=== PATIENT | female | born 1950 | race Caucasian/White ===

== ENCOUNTER 2020-05-10 13:35 | Inpatient (IN) ==
[2020-05-10 14:25] LABS: Basophils % 0.3 % (0.0-0.8); Eosinophils # 0.1 10*3/uL (0.0-0.87); Eosinophils % 1.7 % (0.00-10.9); Hematocrit 29.4 VOL% (35.7-47.0); Hemoglobin 9.1 GM/DL (12.0-16.0); Immature Granulocytes % 1.9 %; Immature Granulocytes Absolute 0.11 #; Lymphocytes # 0.6 10*3/uL (1.4-4.0); Lymphocytes % 10.2 % (21.3-54.2); Mean Corpuscular Volume 99.7 FL (87-102); Mean Platelet Volume 9.4 FL (9.6-12.0); Monocytes % 5.1 % (1.7-12.7); Neutrophils % 80.8 % (38.7-73.9); Platelet Count 227 T/CUMM (130-400); Red Blood Count 2.95 MC/CUMM (3.8-5.5); Red Cell Distribution Width 17.2 % (9.3-17.3); White Blood Count 5.9 T/CUMM (4-12)
[2020-05-10 15:03] LABS: Alanine Aminotransferase 14 U/L (13-56); Albumin 3.5 G/DL (3.4-5.0); Alkaline Phosphatase 69 U/L (45-117); Aspartate Amino Transferase 15 U/L (0-37); Blood Urea Nitrogen 29 MG/DL (7-18); Estimated Glom Filtration Rate 23 ML/MIN; Glucose 62 MG/DL (74-106); Osmolality,Calculated 286.1 MOS/KG (273-304); Total Protein 7.2 G/DL (6.4-8.3)
[2020-05-10 15:05] LABS: Calcium < 5.0 MG/DL (8.5-10.1)
[2020-05-10 15:05] LABS: Bacteria,Urine Many /HPF (Few); Bilirubin,Urine Negative (Negative); Blood, Urine Large mg/dL (Negative); Glucose,Urine (UA) Negative (Negative); Ketones,Urine 5 mg/dL (Negative); Nitrite,Urine Negative (Negative); Protein,Urine 100 MG/DL; RBC,Urine 265 /HPF (0-4); Squamous Epithelial Cell,Urine Occasional /HPF (0-10); Urine Appearance CLOUDY (Clear); Urine Color Yellow (Yellow); Urine Specific Gravity 1.014 (1.001-1.035); Urine Urobilinogen < 2.0 EU/DL (0.2-1.0); WBC,Urine 732 /HPF (0-6)
[2020-05-10] MEDS ORDERED: cefTRIAXone 1,000 MG in SODIUM CHLORIDE 0.9% 100 ML IV STA (15:12)
[2020-05-10] MEDS ORDERED: ACETAMINOPHEN 325 MG TABLET PO PRN (17:11)
[2020-05-10] MEDS ORDERED: ONDANSETRON 4 MG/2 ML VIAL IV PRN (17:11)
[2020-05-10] MEDS ORDERED: GLUCAGON 1 MG VIAL IM PRN (17:11)
[2020-05-10] MEDS ORDERED: MAGNESIUM SULF RIDER 2 GM in PREMIX 1 EACH IV ONE (17:18)
[2020-05-10] MEDS ORDERED: ALBUTEROL/IPRATROPIUM 3 ML NEB RESP TX PRN (17:27)
[2020-05-10] MEDS ORDERED: FLUTICASONE 50 MCG NASAL SPRAY 16 GM BOTTLE BOTH NARES PRN (17:27)
[2020-05-10] MEDS ORDERED: HydrOXYzine PAMOATE 25 MG CAPSULE PO PRN (17:27)
[2020-05-10] MEDS ORDERED: SODIUM CHLORIDE 0.9% 1,000 ML IV SCH (17:30)
[2020-05-10] MEDS ORDERED: DEXTROSE 50% 25 GM/50 ML SYRINGE IV ONE (18:09)
[2020-05-10] MEDS: DEXTROSE 50% 25 GM/50 ML VIAL IV PRN ×2 (18:10→23:00)
[2020-05-10] MEDS ORDERED: CALCIUM GLUCONATE 1,000 MG in SODIUM CHLORIDE 0.9% 100 ML IV ONE (20:00)
[2020-05-10] MEDS: LORATADINE 10 MG TABLET PO SCH (20:37)
[2020-05-10] MEDS: MYCOPHENOLATE MOFETIL 250 MG CAPSULE PO SCH (20:38)
[2020-05-10] MEDS: CALCIUM (CARBONATE)/VITAMIN D 500 MG-200 UNIT TABLET PO SCH (20:39)
[2020-05-10] MEDS: MONTELUKAST 10 MG TABLET PO SCH (20:39)
[2020-05-10] MEDS: SERTRALINE 100 MG TABLET PO SCH (20:40)
[2020-05-10] MEDS: LEVOTHYROXINE 50 MCG TABLET PO SCH (20:40)
[2020-05-10] MEDS: ZALEPLON 5 MG CAPSULE PO SCH (20:40)
[2020-05-10] MEDS: FLUTICASONE/SALMETEROL 500-50 DISKUS 14 DOSE INH SCH (20:41)
[2020-05-10] MEDS: TACROLIMUS 0.5 MG CAPSULE PO SCH (20:41)
[2020-05-11] MEDS: DEXTROSE 50% 25 GM/50 ML VIAL IV PRN (02:25)
[2020-05-11] MEDS: DEXTROSE 5% NACL 0.45% 1,000 ML IV SCH ×2 (03:11→14:20)
[2020-05-11 06:51] LABS: Basophils % 0.2 % (0.0-0.8); Eosinophils # 0.1 10*3/uL (0.0-0.87); Eosinophils % 2.1 % (0.00-10.9); Hemoglobin 8.6 GM/DL (12.0-16.0); Immature Granulocytes % 1.1 %; Immature Granulocytes Absolute 0.06 #; Lymphocytes # 0.5 10*3/uL (1.4-4.0); Lymphocytes % 9.8 % (21.3-54.2); Mean Corpuscular HGB Conc 30.7 GM/DL (32-36); Mean Corpuscular Volume 97.2 FL (87-102); Mean Platelet Volume 9.5 FL (9.6-12.0); Monocytes % 5.3 % (1.7-12.7); Neutrophils % 81.5 % (38.7-73.9); Platelet Count 221 T/CUMM (130-400); Red Blood Count 2.88 MC/CUMM (3.8-5.5); White Blood Count 5.3 T/CUMM (4-12)
[2020-05-11 07:16] LABS: Albumin 3.2 G/DL (3.4-5.0); Bilirubin,Total 0.6 MG/DL (0.2-1.0); Osmolality,Calculated 286.1 MOS/KG (273-304)
[2020-05-11 07:18] LABS: Calcium 5.7 MG/DL (8.5-10.1)
[2020-05-11] MEDS ORDERED: IPRATROPIUM 500 MCG/2.5 ML NEB RESP TX ONE (07:19)
[2020-05-11] MEDS: IPRATROPIUM 500 MCG/2.5 ML NEB RESP TX SCH ×4 (07:20→19:20)
[2020-05-11] MEDS ORDERED: CALCIUM GLUCONATE 1,000 MG in SODIUM CHLORIDE 0.9% 100 ML IV ONE ×2 (07:43→09:00)
[2020-05-11] MEDS ORDERED: PANTOPRAZOLE 40 MG TABLET PO SCH (09:00)
[2020-05-11] MEDS: cefTRIAXone 1,000 MG in SYRINGE 1 EACH IV SCH (09:22)
[2020-05-11] MEDS: PANTOPRAZOLE 40 MG TABLET PO SCH (09:22)
[2020-05-11] MEDS: buPROPion XL 150 MG TABLET PO SCH (09:23)
[2020-05-11] MEDS: MYCOPHENOLATE MOFETIL 250 MG CAPSULE PO SCH ×2 (09:23→21:18)
[2020-05-11] MEDS: CALCIUM (CARBONATE)/VITAMIN D 500 MG-200 UNIT TABLET PO SCH ×3 (09:23→21:18)
[2020-05-11] MEDS: FLUTICASONE/SALMETEROL 500-50 DISKUS 14 DOSE INH SCH ×2 (09:24→21:17)
[2020-05-11] MEDS: TACROLIMUS 0.5 MG CAPSULE PO SCH ×2 (09:24→21:18)
[2020-05-11] MEDS: calcitrioL 0.25 MCG CAPSULE PO SCH (09:25)
[2020-05-11] MEDS: MENTHOL/ZINC OXIDE OINT 71 GM JAR TOP SCH (09:25)
[2020-05-11] MEDS: SODIUM BICARB INJ 50 MEQ in DEXTROSE 5% NACL 0.45% 1,000 ML IV SCH (16:14)
[2020-05-11 16:33] LABS: % Iron Saturation 30.1 % (18-50)
[2020-05-11 16:41] LABS: Folate 3.1 NG/ML (5.4-24.0)
[2020-05-11] MEDS: LEVOTHYROXINE 50 MCG TABLET PO SCH (21:18)
[2020-05-11] MEDS: ZALEPLON 5 MG CAPSULE PO SCH (21:18)
[2020-05-11] MEDS: MONTELUKAST 10 MG TABLET PO SCH (21:18)
[2020-05-11] MEDS: LORATADINE 10 MG TABLET PO SCH (21:18)
[2020-05-12] MEDS: SERTRALINE 100 MG TABLET PO SCH ×2 (01:00→20:52)
[2020-05-12] MEDS: SODIUM BICARB INJ 50 MEQ in DEXTROSE 5% NACL 0.45% 1,000 ML IV SCH ×3 (02:17→23:21)
[2020-05-12 04:56] LABS: Allen Test Positive; Pt O2 Delivery Device Room Air
[2020-05-12 04:57] LABS: ABG Base Excess -10.3 MMOL/L (-2.5-2.5); ABG HCO3 13.5 MMOL/L (20-26); ABG Oxygen Saturation 97.2 % (95-100); ABG PCO2 23.1 MM HG (35-48); ABG PH 7.383 (7.35-7.45); ABG PO2 96.1 MM HG (80-95); ABG TCO2 14.2 MMOL/L (23-27)
[2020-05-12 06:25] LABS: Eosinophils # 0.1 10*3/uL (0.0-0.87); Eosinophils % 2.8 % (0.00-10.9); Hemoglobin 8.2 GM/DL (12.0-16.0); Immature Granulocytes % 0.9 %; Immature Granulocytes Absolute 0.04 #; Lymphocytes # 0.5 10*3/uL (1.4-4.0); Lymphocytes % 12.6 % (21.3-54.2); Mean Corpuscular HGB Conc 31.5 GM/DL (32-36); Mean Corpuscular Volume 95.9 FL (87-102); Mean Platelet Volume 9.6 FL (9.6-12.0); Monocytes % 6.5 % (1.7-12.7); Neutrophils % 77.2 % (38.7-73.9); Platelet Count 211 T/CUMM (130-400); Red Blood Count 2.71 MC/CUMM (3.8-5.5); Red Cell Distribution Width 17.1 % (9.3-17.3); White Blood Count 4.3 T/CUMM (4-12)
[2020-05-12 07:05] LABS: Calcium 5.9 MG/DL (8.5-10.1); Osmolality,Calculated 287.8 MOS/KG (273-304)
[2020-05-12] MEDS: IPRATROPIUM 500 MCG/2.5 ML NEB RESP TX SCH ×4 (07:39→19:02)
[2020-05-12] MEDS: TACROLIMUS 0.5 MG CAPSULE PO SCH ×2 (08:25→20:52)
[2020-05-12] MEDS: MENTHOL/ZINC OXIDE OINT 71 GM JAR TOP SCH (08:25)
[2020-05-12] MEDS: FLUTICASONE/SALMETEROL 500-50 DISKUS 14 DOSE INH SCH ×2 (08:25→20:51)
[2020-05-12] MEDS: buPROPion XL 150 MG TABLET PO SCH (08:26)
[2020-05-12] MEDS: calcitrioL 0.25 MCG CAPSULE PO SCH (08:26)
[2020-05-12] MEDS: PANTOPRAZOLE 40 MG TABLET PO SCH (08:26)
[2020-05-12] MEDS: CALCIUM (CARBONATE)/VITAMIN D 500 MG-200 UNIT TABLET PO SCH ×3 (08:26→20:52)
[2020-05-12] MEDS: MYCOPHENOLATE MOFETIL 250 MG CAPSULE PO SCH ×2 (08:26→20:52)
[2020-05-12] MEDS: cefTRIAXone 1,000 MG in SYRINGE 1 EACH IV SCH (09:13)
[2020-05-12] MEDS: LORATADINE 10 MG TABLET PO SCH (20:51)
[2020-05-12] MEDS: ZALEPLON 5 MG CAPSULE PO SCH (20:52)
[2020-05-12] MEDS: MONTELUKAST 10 MG TABLET PO SCH (20:52)
[2020-05-12] MEDS: FOLIC ACID 1 MG TABLET PO SCH (20:52)
[2020-05-12] MEDS: LEVOTHYROXINE 50 MCG TABLET PO SCH (20:53)
[2020-05-13 05:01] LABS: Basophils % 0.3 % (0.0-0.8); Eosinophils # 0.1 10*3/uL (0.0-0.87); Hematocrit 25.8 VOL% (35.7-47.0); Immature Granulocytes % 1.4 %; Immature Granulocytes Absolute 0.05 #; Lymphocytes # 0.5 10*3/uL (1.4-4.0); Lymphocytes % 15.4 % (21.3-54.2); Mean Corpuscular Volume 98.1 FL (87-102); Mean Platelet Volume 10.1 FL (9.6-12.0); Monocytes % 7.1 % (1.7-12.7); Neutrophils % 71.8 % (38.7-73.9); Platelet Count 211 T/CUMM (130-400); Red Blood Count 2.63 MC/CUMM (3.8-5.5); Red Cell Distribution Width 17.1 % (9.3-17.3); White Blood Count 3.5 T/CUMM (4-12)
[2020-05-13 05:24] LABS: Bilirubin,Total 0.4 MG/DL (0.2-1.0); Calcium 5.9 MG/DL (8.5-10.1); Osmolality,Calculated 288.6 MOS/KG (273-304); Total Protein 6.6 G/DL (6.4-8.3)
[2020-05-13 07:33] LABS: Bilirubin,Urine Negative (Negative); Blood, Urine Negative (Negative); Glucose,Urine (UA) Negative (Negative); Ketones,Urine Negative (Negative); Mucus,Urine Occasional /LPF (Occasional); Nitrite,Urine Negative (Negative); Protein,Urine Negative; RBC,Urine 1 /HPF (0-4); Squamous Epithelial Cell,Urine Occasional /HPF (0-10); Urine Appearance CLEAR (Clear); Urine Color Straw (Yellow); Urine Specific Gravity 1.004 (1.001-1.035); Urine Urobilinogen < 2.0 EU/DL (0.2-1.0); WBC,Urine 2 /HPF (0-6)
[2020-05-13] MEDS: IPRATROPIUM 500 MCG/2.5 ML NEB RESP TX SCH ×4 (07:47→18:53)
[2020-05-13] MEDS: LACTATED RINGERS 1,000 ML IV SCH (08:35)
[2020-05-13] MEDS ORDERED: LIDOCAINE 2% 5 ML VIAL ONE (09:00)
[2020-05-13] MEDS ORDERED: propofoL 200 MG/20 ML VIAL IV ONE (09:00)
[2020-05-13] MEDS ORDERED: BISACODYL 5 MG TABLET PO ONE (12:00)
[2020-05-13] MEDS: FLUTICASONE/SALMETEROL 500-50 DISKUS 14 DOSE INH SCH ×2 (12:04→21:15)
[2020-05-13] MEDS: MENTHOL/ZINC OXIDE OINT 71 GM JAR TOP SCH (12:04)
[2020-05-13] MEDS: TACROLIMUS 0.5 MG CAPSULE PO SCH ×2 (12:05→21:11)
[2020-05-13] MEDS: CALCIUM (CARBONATE)/VITAMIN D 500 MG-200 UNIT TABLET PO SCH ×3 (12:06→21:10)
[2020-05-13] MEDS: PANTOPRAZOLE 40 MG TABLET PO SCH (12:06)
[2020-05-13] MEDS: CHOLECALCIFEROL 1,000 UNIT TABLET PO SCH (12:06)
[2020-05-13] MEDS: FOLIC ACID 1 MG TABLET PO SCH ×2 (12:07→21:11)
[2020-05-13] MEDS: MYCOPHENOLATE MOFETIL 250 MG CAPSULE PO SCH ×2 (12:07→21:12)
[2020-05-13] MEDS: cefTRIAXone 1,000 MG in SYRINGE 1 EACH IV SCH (12:07)
[2020-05-13] MEDS: SODIUM BICARB INJ 50 MEQ in DEXTROSE 5% NACL 0.45% 1,000 ML IV SCH ×2 (12:13→23:42)
[2020-05-13] MEDS: buPROPion XL 150 MG TABLET PO SCH (12:13)
[2020-05-13] MEDS ORDERED: POLYETHYLENE GLYCOL POWDER 255 GM BOTTLE PO ONE (15:00)
[2020-05-13] MEDS ORDERED: CALCIUM GLUCONATE 1,000 MG in SODIUM CHLORIDE 0.9% 100 ML IV ONE (15:30)
[2020-05-13] MEDS ORDERED: PROMETHAZINE 25 MG/1 ML VIAL IM PRN (19:25)
[2020-05-13] MEDS ORDERED: MAGNESIUM CITRATE 300 ML BOTTLE PO ONE (21:00)
[2020-05-13] MEDS: LORATADINE 10 MG TABLET PO SCH (21:11)
[2020-05-13] MEDS: MONTELUKAST 10 MG TABLET PO SCH (21:11)
[2020-05-13] MEDS: LEVOTHYROXINE 50 MCG TABLET PO SCH (21:11)
[2020-05-13] MEDS: ZALEPLON 5 MG CAPSULE PO SCH (21:12)
[2020-05-13] MEDS: SERTRALINE 100 MG TABLET PO SCH (21:14)
[2020-05-14 06:15] LABS: Basophils % 0.6 % (0.0-0.8); Eosinophils # 0.1 10*3/uL (0.0-0.87); Eosinophils % 4.4 % (0.00-10.9); Hematocrit 25.2 VOL% (35.7-47.0); Hemoglobin 7.9 GM/DL (12.0-16.0); Immature Granulocytes % 1.9 %; Immature Granulocytes Absolute 0.06 #; Lymphocytes # 0.5 10*3/uL (1.4-4.0); Lymphocytes % 14.8 % (21.3-54.2); Mean Corpuscular HGB Conc 31.3 GM/DL (32-36); Mean Corpuscular Volume 96.6 FL (87-102); Mean Platelet Volume 10.6 FL (9.6-12.0); Monocytes % 8.5 % (1.7-12.7); Neutrophils % 69.8 % (38.7-73.9); Platelet Count 178 T/CUMM (130-400); Red Blood Count 2.61 MC/CUMM (3.8-5.5); Red Cell Distribution Width 16.6 % (9.3-17.3); White Blood Count 3.2 T/CUMM (4-12)
[2020-05-14 06:27] LABS: Calcium 6.7 MG/DL (8.5-10.1); Osmolality,Calculated 285.7 MOS/KG (273-304)
[2020-05-14] MEDS: IPRATROPIUM 500 MCG/2.5 ML NEB RESP TX SCH ×4 (07:47→18:22)
[2020-05-14] MEDS ORDERED: LACTATED RINGERS 1,000 ML IV SCH (08:00)
[2020-05-14] MEDS ORDERED: propofoL 200 MG/20 ML VIAL IV ONE (09:00)
[2020-05-14] MEDS ORDERED: LIDOCAINE 100 MG/5 ML SYRINGE ONE (09:00)
[2020-05-14 10:30] LABS: 25-Hydroxy D Total 7.4 ng/mL; 25-Hydroxy D2 < 4.0 ng/mL; 25-Hydroxy D3 7.4 ng/mL
[2020-05-14] MEDS: POTASSIUM CHLORIDE RIDER 10 MEQ in PREMIX 1 EACH IV SCH ×4 (11:02→13:58)
[2020-05-14] MEDS: TACROLIMUS 0.5 MG CAPSULE PO SCH ×2 (11:07→21:43)
[2020-05-14] MEDS: PANTOPRAZOLE 40 MG TABLET PO SCH (11:08)
[2020-05-14] MEDS: CALCIUM (CARBONATE)/VITAMIN D 500 MG-200 UNIT TABLET PO SCH ×3 (11:08→21:42)
[2020-05-14] MEDS: MYCOPHENOLATE MOFETIL 250 MG CAPSULE PO SCH ×2 (11:08→21:37)
[2020-05-14] MEDS: FOLIC ACID 1 MG TABLET PO SCH ×2 (11:08→21:37)
[2020-05-14] MEDS: CHOLECALCIFEROL 1,000 UNIT TABLET PO SCH (11:08)
[2020-05-14] MEDS: MENTHOL/ZINC OXIDE OINT 71 GM JAR TOP SCH (11:09)
[2020-05-14] MEDS: buPROPion XL 150 MG TABLET PO SCH (11:09)
[2020-05-14] MEDS: FLUTICASONE/SALMETEROL 500-50 DISKUS 14 DOSE INH SCH ×2 (11:09→21:36)
[2020-05-14] MEDS: cefTRIAXone 1,000 MG in SYRINGE 1 EACH IV SCH (11:09)
[2020-05-14] MEDS ORDERED: POTASSIUM CHLORIDE 20 MEQ TABLET PO ONE (14:12)
[2020-05-14] MEDS ORDERED: MAGNESIUM SULF RIDER 2 GM in PREMIX 1 EACH IV ONE (14:12)
[2020-05-14] MEDS ORDERED: CALCIUM GLUCONATE 1,000 MG in SODIUM CHLORIDE 0.9% 100 ML IV ONE (14:30)
[2020-05-14] MEDS: SODIUM BICARB INJ 50 MEQ in DEXTROSE 5% NACL 0.45% 1,000 ML IV SCH (15:25)
[2020-05-14] MEDS: MONTELUKAST 10 MG TABLET PO SCH (21:37)
[2020-05-14] MEDS: LEVOTHYROXINE 50 MCG TABLET PO SCH (21:37)
[2020-05-14] MEDS: LORATADINE 10 MG TABLET PO SCH (21:37)
[2020-05-14] MEDS: ZALEPLON 5 MG CAPSULE PO SCH (21:37)
[2020-05-14] MEDS: SERTRALINE 100 MG TABLET PO SCH (21:37)
[2020-05-15] MEDS: SODIUM BICARB INJ 50 MEQ in DEXTROSE 5% NACL 0.45% 1,000 ML IV SCH (05:14)
[2020-05-15 06:04] LABS: Basophils % 0.3 % (0.0-0.8); Eosinophils # 0.2 10*3/uL (0.0-0.87); Eosinophils % 4.5 % (0.00-10.9); Hematocrit 24.8 VOL% (35.7-47.0); Hemoglobin 7.8 GM/DL (12.0-16.0); Immature Granulocytes % 2.1 %; Immature Granulocytes Absolute 0.07 #; Lymphocytes # 0.5 10*3/uL (1.4-4.0); Mean Corpuscular HGB Conc 31.5 GM/DL (32-36); Mean Corpuscular Volume 96.9 FL (87-102); Mean Platelet Volume 9.2 FL (9.6-12.0); Monocytes % 8.7 % (1.7-12.7); Neutrophils % 68.4 % (38.7-73.9); Platelet Count 171 T/CUMM (130-400); Red Blood Count 2.56 MC/CUMM (3.8-5.5); Red Cell Distribution Width 16.2 % (9.3-17.3); White Blood Count 3.3 T/CUMM (4-12)
[2020-05-15 06:27] LABS: Calcium 6.5 MG/DL (8.5-10.1); Osmolality,Calculated 287.6 MOS/KG (273-304)
[2020-05-15] MEDS: IPRATROPIUM 500 MCG/2.5 ML NEB RESP TX SCH ×2 (07:40→11:20)
[2020-05-15] MEDS: LACTATED RINGERS 1,000 ML IV SCH (08:09)
[2020-05-15] MEDS: CHOLECALCIFEROL 1,000 UNIT TABLET PO SCH (08:41)
[2020-05-15] MEDS: CALCIUM (CARBONATE)/VITAMIN D 500 MG-200 UNIT TABLET PO SCH ×2 (08:41→16:16)
[2020-05-15] MEDS: TACROLIMUS 0.5 MG CAPSULE PO SCH (08:42)
[2020-05-15] MEDS: buPROPion XL 150 MG TABLET PO SCH (08:42)
[2020-05-15] MEDS: FOLIC ACID 1 MG TABLET PO SCH (08:42)
[2020-05-15] MEDS: cefTRIAXone 1,000 MG in SYRINGE 1 EACH IV SCH (08:42)
[2020-05-15] MEDS: PANTOPRAZOLE 40 MG TABLET PO SCH (08:42)
[2020-05-15] MEDS: MYCOPHENOLATE MOFETIL 250 MG CAPSULE PO SCH (08:42)
[2020-05-15] MEDS: MENTHOL/ZINC OXIDE OINT 71 GM JAR TOP SCH (08:44)
[2020-05-15] MEDS: FLUTICASONE/SALMETEROL 500-50 DISKUS 14 DOSE INH SCH (08:44)
[2020-05-15] MEDS ORDERED: SODIUM CHLORIDE 0.9% 1,000 ML IV PRN (12:22)
[2020-05-15] MEDS ORDERED: POTASSIUM CHLORIDE 20 MEQ TABLET PO ONE (12:23)
[2020-05-15 16:20] VITALS: BP 153/56
== END 2020-05-15 17:00 | disposition home or self-care (01) | DRG 389 ==
LOC: N.ED 13:35 → N.EDINP 17:11 → N.5E 17:30
PROVIDERS: ADMIT Internal Medicine; ATTEND Internal Medicine

== ENCOUNTER 2020-06-30 12:04 | Inpatient (IN) ==
[2020-06-30] MEDS ORDERED: ONDANSETRON 4 MG/2 ML VIAL IV STA (12:36)
[2020-06-30] MEDS ORDERED: SODIUM CHLORIDE 0.9% 1,000 ML IV STA ×2 (12:36→14:54)
[2020-06-30 13:22] LABS: Basophils % 0.2 % (0.0-0.8); Eosinophils # 0.1 10*3/uL (0.0-0.87); Eosinophils % 0.4 % (0.00-10.9); Hematocrit 29.2 VOL% (35.7-47.0); Hemoglobin 9.8 GM/DL (12.0-16.0); Immature Granulocytes % 0.6 %; Immature Granulocytes Absolute 0.09 #; Lymphocytes # 0.8 10*3/uL (1.4-4.0); Lymphocytes % 5.1 % (21.3-54.2); Mean Corpuscular HGB Conc 33.6 GM/DL (32-36); Mean Corpuscular Volume 85.6 FL (87-102); Mean Platelet Volume 9.1 FL (9.6-12.0); Monocytes % 4.1 % (1.7-12.7); Neutrophils % 89.6 % (38.7-73.9); Platelet Count 262 T/CUMM (130-400); Red Blood Count 3.41 MC/CUMM (3.8-5.5); Red Cell Distribution Width 14.7 % (9.3-17.3); White Blood Count 15.8 T/CUMM (4-12)
[2020-06-30 13:42] LABS: Alanine Aminotransferase < 9 U/L (13-56); Albumin 3.1 G/DL (3.4-5.0); Alkaline Phosphatase 90 U/L (45-117); Aspartate Amino Transferase 6 U/L (0-37); Blood Urea Nitrogen 77 MG/DL (7-18); Calcium 7.4 MG/DL (8.5-10.1); Estimated Glom Filtration Rate 9 ML/MIN; Glucose 101 MG/DL (74-106); Osmolality,Calculated 295.8 MOS/KG (273-304); Total Protein 6.9 G/DL (6.4-8.3)
[2020-06-30] MEDS ORDERED: cefTRIAXone 1,000 MG VIAL ONE (15:48)
[2020-06-30] MEDS ORDERED: PROMETHAZINE 25 MG/1 ML VIAL ONE (15:48)
[2020-06-30] MEDS ORDERED: SODIUM CHLORIDE 0.9% 100 ML IV ONE (15:49)
[2020-06-30 16:50] LABS: Bacteria,Urine Few /HPF (Few); Bilirubin,Urine Negative (Negative); Blood, Urine Small mg/dL (Negative); Glucose,Urine (UA) Negative (Negative); Ketones,Urine Negative (Negative); Nitrite,Urine Negative (Negative); Protein,Urine Negative; RBC,Urine 1 /HPF (0-4); Squamous Epithelial Cell,Urine Occasional /HPF (0-10); Urine Appearance CLOUDY (Clear); Urine Color Yellow (Yellow); Urine Specific Gravity 1.016 (1.001-1.035); Urine Urobilinogen < 2.0 EU/DL (0.2-1.0); WBC,Urine 7 /HPF (0-6)
[2020-06-30] MEDS ORDERED: PROMETHAZINE 25 MG/1 ML VIAL IM STA (17:13)
[2020-06-30] MEDS ORDERED: cefTRIAXone 1,000 MG in SODIUM CHLORIDE 0.9% 100 ML IV STA (17:14)
[2020-06-30] MEDS ORDERED: DEXTROSE 50% 25 GM/50 ML VIAL IV PRN (18:04)
[2020-06-30] MEDS ORDERED: GLUCAGON 1 MG VIAL IM PRN (18:04)
[2020-06-30] MEDS ORDERED: FLUTICASONE 50 MCG NASAL SPRAY 16 GM BOTTLE BOTH NARES PRN (18:18)
[2020-06-30] MEDS ORDERED: ALBUTEROL/IPRATROPIUM 3 ML NEB RESP TX PRN (18:18)
[2020-06-30] MEDS ORDERED: HydrOXYzine PAMOATE 25 MG CAPSULE PO PRN (18:18)
[2020-06-30] MEDS: LACTATED RINGERS 1,000 ML IV SCH (19:45)
[2020-06-30] MEDS: ONDANSETRON 4 MG/2 ML VIAL IV PRN (20:12)
[2020-06-30] MEDS: CALCIUM (CARBONATE)/VITAMIN D 500 MG-200 UNIT TABLET PO SCH (20:56)
[2020-06-30] MEDS: TACROLIMUS 0.5 MG CAPSULE PO SCH (20:56)
[2020-06-30] MEDS: MYCOPHENOLATE MOFETIL 250 MG CAPSULE PO SCH (20:56)
[2020-06-30] MEDS: PANTOPRAZOLE 40 MG TABLET PO SCH (20:56)
[2020-06-30] MEDS: LORATADINE 10 MG TABLET PO SCH (20:56)
[2020-06-30] MEDS: FOLIC ACID 1 MG TABLET PO SCH (20:56)
[2020-06-30] MEDS: ZALEPLON 5 MG CAPSULE PO SCH (20:56)
[2020-06-30] MEDS: FLUTICASONE/SALMETEROL 500-50 DISKUS 14 DOSE INH SCH (20:56)
[2020-06-30] MEDS: SERTRALINE 100 MG TABLET PO SCH (20:57)
[2020-06-30] MEDS ORDERED: LEVOTHYROXINE 50 MCG TABLET PO SCH (21:00)
[2020-07-01] MEDS: VANCOMYCIN 50 MG/ML 60 ML/BOTTLE PO SCH ×4 (00:30→17:29)
[2020-07-01] MEDS: ACETAMINOPHEN 325 MG TABLET PO PRN ×2 (00:30→10:00)
[2020-07-01] MEDS: ONDANSETRON 4 MG/2 ML VIAL IV PRN (01:07)
[2020-07-01] MEDS: LACTATED RINGERS 1,000 ML IV SCH ×2 (04:48→13:09)
[2020-07-01] MEDS: LEVOTHYROXINE 50 MCG TABLET PO SCH (05:43)
[2020-07-01 06:10] LABS: Calcium 7.7 MG/DL (8.5-10.1); Osmolality,Calculated 297.7 MOS/KG (273-304)
[2020-07-01 06:23] LABS: Basophils % 0.2 % (0.0-0.8); Eosinophils % 0.3 % (0.00-10.9); Hematocrit 29.3 VOL% (35.7-47.0); Hemoglobin 9.9 GM/DL (12.0-16.0); Immature Granulocytes % 0.5 %; Immature Granulocytes Absolute 0.07 #; Lymphocytes # 0.9 10*3/uL (1.4-4.0); Lymphocytes % 6.1 % (21.3-54.2); Mean Corpuscular HGB Conc 33.8 GM/DL (32-36); Mean Corpuscular Volume 85.9 FL (87-102); Monocytes % 3.6 % (1.7-12.7); Neutrophils % 89.3 % (38.7-73.9); Platelet Count 204 T/CUMM (130-400); Red Blood Count 3.41 MC/CUMM (3.8-5.5); Red Cell Distribution Width 14.6 % (9.3-17.3); White Blood Count 14.7 T/CUMM (4-12)
[2020-07-01] MEDS: IPRATROPIUM 500 MCG/2.5 ML NEB RESP TX SCH ×4 (07:31→19:09)
[2020-07-01] MEDS: CHOLECALCIFEROL 1,000 UNIT TABLET PO SCH (09:49)
[2020-07-01] MEDS: TACROLIMUS 0.5 MG CAPSULE PO SCH ×2 (09:49→20:29)
[2020-07-01] MEDS: FOLIC ACID 1 MG TABLET PO SCH ×2 (09:49→20:37)
[2020-07-01] MEDS: PANTOPRAZOLE 40 MG TABLET PO SCH ×2 (09:49→20:37)
[2020-07-01] MEDS: buPROPion XL 150 MG TABLET PO SCH (09:50)
[2020-07-01] MEDS: calcitrioL 0.25 MCG CAPSULE PO SCH (09:50)
[2020-07-01] MEDS: MYCOPHENOLATE MOFETIL 250 MG CAPSULE PO SCH ×2 (09:58→20:37)
[2020-07-01] MEDS: CALCIUM (CARBONATE)/VITAMIN D 500 MG-200 UNIT TABLET PO SCH ×3 (10:51→20:37)
[2020-07-01] MEDS: MENTHOL/ZINC OXIDE OINT 71 GM JAR TOP SCH ×2 (10:51→20:37)
[2020-07-01] MEDS: SODIUM CHLORIDE 0.9% 1,000 ML IV SCH ×2 (16:37→22:41)
[2020-07-01] MEDS: NYSTATIN CREAM 15 GM TUBE TOP SCH ×2 (16:37→20:37)
[2020-07-01] MEDS: FLUTICASONE/SALMETEROL 500-50 DISKUS 14 DOSE INH SCH ×2 (17:36→22:41)
[2020-07-01] MEDS: ZALEPLON 5 MG CAPSULE PO SCH (20:29)
[2020-07-01] MEDS: LORATADINE 10 MG TABLET PO SCH (20:37)
[2020-07-01] MEDS: SERTRALINE 100 MG TABLET PO SCH (20:37)
[2020-07-02] MEDS: VANCOMYCIN 50 MG/ML 60 ML/BOTTLE PO SCH ×5 (00:32→23:25)
[2020-07-02] MEDS: SODIUM CHLORIDE 0.9% 1,000 ML IV SCH (05:39)
[2020-07-02] MEDS: LEVOTHYROXINE 50 MCG TABLET PO SCH (05:40)
[2020-07-02 06:06] LABS: Basophils % 0.2 % (0.0-0.8); Eosinophils # 0.2 10*3/uL (0.0-0.87); Eosinophils % 2.5 % (0.00-10.9); Hematocrit 24.3 VOL% (35.7-47.0); Hemoglobin 8.4 GM/DL (12.0-16.0); Immature Granulocytes % 0.8 %; Immature Granulocytes Absolute 0.05 #; Lymphocytes # 0.7 10*3/uL (1.4-4.0); Lymphocytes % 11.1 % (21.3-54.2); Mean Corpuscular HGB Conc 34.6 GM/DL (32-36); Mean Corpuscular Volume 86.2 FL (87-102); Mean Platelet Volume 10.2 FL (9.6-12.0); Monocytes % 4.3 % (1.7-12.7); Neutrophils % 81.1 % (38.7-73.9); Platelet Count 195 T/CUMM (130-400); Red Blood Count 2.82 MC/CUMM (3.8-5.5); Red Cell Distribution Width 14.8 % (9.3-17.3); White Blood Count 6.5 T/CUMM (4-12)
[2020-07-02 06:37] LABS: Calcium 7.4 MG/DL (8.5-10.1)
[2020-07-02] MEDS: IPRATROPIUM 500 MCG/2.5 ML NEB RESP TX SCH ×4 (07:46→20:40)
[2020-07-02] MEDS: SODIUM BICARB INJ 150 MEQ in STERILE WATER INJ 850 ML IV SCH ×2 (09:27→17:46)
[2020-07-02] MEDS: FLUTICASONE/SALMETEROL 500-50 DISKUS 14 DOSE INH SCH ×2 (09:28→22:07)
[2020-07-02] MEDS: TACROLIMUS 0.5 MG CAPSULE PO SCH ×2 (09:28→22:09)
[2020-07-02] MEDS: FOLIC ACID 1 MG TABLET PO SCH ×2 (09:28→22:09)
[2020-07-02] MEDS: MENTHOL/ZINC OXIDE OINT 71 GM JAR TOP SCH (09:28)
[2020-07-02] MEDS: MYCOPHENOLATE MOFETIL 250 MG CAPSULE PO SCH ×2 (09:28→22:08)
[2020-07-02] MEDS: NYSTATIN CREAM 15 GM TUBE TOP SCH ×2 (09:28→22:08)
[2020-07-02] MEDS: CHOLECALCIFEROL 1,000 UNIT TABLET PO SCH (09:29)
[2020-07-02] MEDS: buPROPion XL 150 MG TABLET PO SCH (09:29)
[2020-07-02] MEDS: PANTOPRAZOLE 40 MG TABLET PO SCH ×2 (09:29→22:09)
[2020-07-02] MEDS: calcitrioL 0.25 MCG CAPSULE PO SCH (09:29)
[2020-07-02] MEDS: CALCIUM (CARBONATE)/VITAMIN D 500 MG-200 UNIT TABLET PO SCH ×3 (09:29→22:09)
[2020-07-02] MEDS ORDERED: VANCOMYCIN INJ 1,000 MG in SODIUM CHLORIDE 0.9% 250 ML IV PRN (10:48)
[2020-07-02] MEDS ORDERED: VANCOMYCIN INJ 1,000 MG in SODIUM CHLORIDE 0.9% 250 ML IV ONE (11:00)
[2020-07-02] MEDS: ZALEPLON 5 MG CAPSULE PO SCH (22:08)
[2020-07-02] MEDS: SERTRALINE 100 MG TABLET PO SCH (22:08)
[2020-07-02] MEDS: LORATADINE 10 MG TABLET PO SCH (22:08)
[2020-07-03] MEDS: SODIUM CHLORIDE 0.9% 1,000 ML IV SCH ×3 (01:21→11:36)
[2020-07-03] MEDS: SODIUM BICARB INJ 150 MEQ in STERILE WATER INJ 850 ML IV SCH ×3 (02:22→22:51)
[2020-07-03] MEDS: VANCOMYCIN 50 MG/ML 60 ML/BOTTLE PO SCH ×3 (05:36→18:29)
[2020-07-03] MEDS: LEVOTHYROXINE 50 MCG TABLET PO SCH (05:36)
[2020-07-03 06:36] LABS: Basophils % 0.2 % (0.0-0.8); Eosinophils # 0.2 10*3/uL (0.0-0.87); Eosinophils % 3.6 % (0.00-10.9); Hematocrit 21.3 VOL% (35.7-47.0); Hemoglobin 7.3 GM/DL (12.0-16.0); Immature Granulocytes % 0.7 %; Immature Granulocytes Absolute 0.03 #; Lymphocytes # 0.7 10*3/uL (1.4-4.0); Lymphocytes % 16.2 % (21.3-54.2); Mean Corpuscular HGB Conc 34.3 GM/DL (32-36); Mean Corpuscular Volume 83.5 FL (87-102); Mean Platelet Volume 10.7 FL (9.6-12.0); Neutrophils % 74.3 % (38.7-73.9); Platelet Count 180 T/CUMM (130-400); Red Blood Count 2.55 MC/CUMM (3.8-5.5); Red Cell Distribution Width 14.6 % (9.3-17.3); White Blood Count 4.4 T/CUMM (4-12)
[2020-07-03 06:55] LABS: Calcium 7.4 MG/DL (8.5-10.1); Osmolality,Calculated 295.8 MOS/KG (273-304)
[2020-07-03] MEDS: IPRATROPIUM 500 MCG/2.5 ML NEB RESP TX SCH ×4 (07:25→19:40)
[2020-07-03] MEDS: MYCOPHENOLATE MOFETIL 250 MG CAPSULE PO SCH ×2 (11:40→20:32)
[2020-07-03] MEDS: PANTOPRAZOLE 40 MG TABLET PO SCH ×2 (11:40→20:32)
[2020-07-03] MEDS: buPROPion XL 150 MG TABLET PO SCH (11:40)
[2020-07-03] MEDS: CHOLECALCIFEROL 1,000 UNIT TABLET PO SCH (11:41)
[2020-07-03] MEDS: TACROLIMUS 0.5 MG CAPSULE PO SCH ×2 (11:42→20:32)
[2020-07-03] MEDS: FOLIC ACID 1 MG TABLET PO SCH ×2 (11:42→20:32)
[2020-07-03] MEDS: calcitrioL 0.25 MCG CAPSULE PO SCH (11:43)
[2020-07-03] MEDS: NYSTATIN CREAM 15 GM TUBE TOP SCH ×2 (11:45→20:33)
[2020-07-03] MEDS: MENTHOL/ZINC OXIDE OINT 71 GM JAR TOP SCH (11:46)
[2020-07-03] MEDS: FLUTICASONE/SALMETEROL 500-50 DISKUS 14 DOSE INH SCH ×2 (11:47→20:33)
[2020-07-03] MEDS: CALCIUM (CARBONATE)/VITAMIN D 500 MG-200 UNIT TABLET PO SCH ×3 (11:48→20:32)
[2020-07-03] MEDS: POTASSIUM CHLORIDE 20 MEQ TABLET PO SCH ×2 (11:49→13:50)
[2020-07-03] MEDS ORDERED: SODIUM CHLORIDE 0.9% 1,000 ML IV PRN (12:34)
[2020-07-03] MEDS ORDERED: VANCOMYCIN INJ 1,000 MG in SODIUM CHLORIDE 0.9% 250 ML IV ONE ×2 (17:00→22:30)
[2020-07-03] MEDS: NYSTATIN 500,000 UNIT/5 ML UDCUP SWISH/SWAL SCH ×2 (17:22→20:31)
[2020-07-03] MEDS: LORATADINE 10 MG TABLET PO SCH (20:31)
[2020-07-03] MEDS: SERTRALINE 100 MG TABLET PO SCH (20:32)
[2020-07-03] MEDS: ZALEPLON 5 MG CAPSULE PO SCH (20:32)
[2020-07-03] MEDS: SODIUM CHLOR 0.9% KCL 40 MEQ 40 MEQ/1,000 ML BAG IV SCH (22:43)
[2020-07-04] MEDS: VANCOMYCIN 50 MG/ML 60 ML/BOTTLE PO SCH ×5 (00:38→23:19)
[2020-07-04] MEDS: LEVOTHYROXINE 50 MCG TABLET PO SCH (05:31)
[2020-07-04 06:12] LABS: Basophils % 0.5 % (0.0-0.8); Eosinophils # 0.2 10*3/uL (0.0-0.87); Hematocrit 27.9 VOL% (35.7-47.0); Immature Granulocytes % 0.8 %; Immature Granulocytes Absolute 0.03 #; Lymphocytes # 0.7 10*3/uL (1.4-4.0); Lymphocytes % 17.5 % (21.3-54.2); Mean Corpuscular HGB Conc 33.7 GM/DL (32-36); Mean Corpuscular Volume 84.5 FL (87-102); Mean Platelet Volume 10.1 FL (9.6-12.0); Monocytes % 8.5 % (1.7-12.7); Neutrophils % 66.7 % (38.7-73.9); Platelet Count 154 T/CUMM (130-400); Red Cell Distribution Width 14.3 % (9.3-17.3)
[2020-07-04 06:19] LABS: Hemoglobin 9.4 GM/DL (12.0-16.0)
[2020-07-04 06:35] LABS: Calcium 7.1 MG/DL (8.5-10.1); Osmolality,Calculated 294.6 MOS/KG (273-304)
[2020-07-04] MEDS: IPRATROPIUM 500 MCG/2.5 ML NEB RESP TX SCH ×4 (07:02→19:31)
[2020-07-04] MEDS: SODIUM CHLOR 0.9% KCL 40 MEQ 40 MEQ/1,000 ML BAG IV SCH ×3 (07:18→15:44)
[2020-07-04] MEDS: SODIUM BICARB INJ 150 MEQ in STERILE WATER INJ 850 ML IV SCH ×2 (07:18→07:19)
[2020-07-04] MEDS: SODIUM CHLORIDE 0.9% 1,000 ML IV SCH ×2 (07:19→07:20)
[2020-07-04] MEDS: POTASSIUM CHLORIDE 20 MEQ TABLET PO SCH (07:20)
[2020-07-04] MEDS ORDERED: POTASSIUM CHLORIDE 20 MEQ TABLET PO ONE (07:28)
[2020-07-04] MEDS: ONDANSETRON 4 MG/2 ML VIAL IV PRN ×3 (08:47→21:06)
[2020-07-04] MEDS: FOLIC ACID 1 MG TABLET PO SCH ×2 (08:48→21:06)
[2020-07-04] MEDS: TACROLIMUS 0.5 MG CAPSULE PO SCH ×2 (08:48→21:07)
[2020-07-04] MEDS: MYCOPHENOLATE MOFETIL 250 MG CAPSULE PO SCH ×2 (08:49→21:07)
[2020-07-04] MEDS: CHOLECALCIFEROL 1,000 UNIT TABLET PO SCH (08:49)
[2020-07-04] MEDS: calcitrioL 0.25 MCG CAPSULE PO SCH (08:49)
[2020-07-04] MEDS: NYSTATIN CREAM 15 GM TUBE TOP SCH ×2 (08:50→21:05)
[2020-07-04] MEDS: buPROPion XL 150 MG TABLET PO SCH (08:50)
[2020-07-04] MEDS: MENTHOL/ZINC OXIDE OINT 71 GM JAR TOP SCH (08:50)
[2020-07-04] MEDS: PANTOPRAZOLE 40 MG TABLET PO SCH ×2 (08:50→21:07)
[2020-07-04] MEDS: FLUTICASONE/SALMETEROL 500-50 DISKUS 14 DOSE INH SCH ×2 (08:50→21:05)
[2020-07-04] MEDS: CALCIUM (CARBONATE)/VITAMIN D 500 MG-200 UNIT TABLET PO SCH ×3 (08:50→21:07)
[2020-07-04] MEDS: NYSTATIN 500,000 UNIT/5 ML UDCUP SWISH/SWAL SCH ×4 (08:50→21:06)
[2020-07-04] MEDS: ZALEPLON 5 MG CAPSULE PO SCH (21:06)
[2020-07-04] MEDS: SERTRALINE 100 MG TABLET PO SCH (21:07)
[2020-07-04] MEDS: LORATADINE 10 MG TABLET PO SCH (21:07)
[2020-07-05] MEDS: VANCOMYCIN 50 MG/ML 60 ML/BOTTLE PO SCH ×4 (05:39→17:14)
[2020-07-05] MEDS: LEVOTHYROXINE 50 MCG TABLET PO SCH (05:39)
[2020-07-05 06:38] LABS: Basophils % 0.3 % (0.0-0.8); Eosinophils # 0.2 10*3/uL (0.0-0.87); Eosinophils % 5.5 % (0.00-10.9); Hematocrit 28.2 VOL% (35.7-47.0); Hemoglobin 9.1 GM/DL (12.0-16.0); Immature Granulocytes % 0.8 %; Immature Granulocytes Absolute 0.03 #; Lymphocytes # 0.6 10*3/uL (1.4-4.0); Lymphocytes % 16.6 % (21.3-54.2); Mean Corpuscular HGB Conc 32.3 GM/DL (32-36); Mean Corpuscular Volume 89.8 FL (87-102); Mean Platelet Volume 10.4 FL (9.6-12.0); Monocytes % 6.6 % (1.7-12.7); Neutrophils % 70.2 % (38.7-73.9); Platelet Count 139 T/CUMM (130-400); Red Blood Count 3.14 MC/CUMM (3.8-5.5); Red Cell Distribution Width 14.6 % (9.3-17.3); White Blood Count 3.6 T/CUMM (4-12)
[2020-07-05 07:00] LABS: Calcium 7.1 MG/DL (8.5-10.1); Osmolality,Calculated 297.1 MOS/KG (273-304)
[2020-07-05] MEDS: IPRATROPIUM 500 MCG/2.5 ML NEB RESP TX SCH ×4 (07:07→19:45)
[2020-07-05] MEDS: SODIUM CHLOR 0.9% KCL 40 MEQ 40 MEQ/1,000 ML BAG IV SCH ×2 (07:11→07:12)
[2020-07-05] MEDS: MYCOPHENOLATE MOFETIL 250 MG CAPSULE PO SCH ×3 (07:44→21:20)
[2020-07-05] MEDS: CHOLECALCIFEROL 1,000 UNIT TABLET PO SCH ×2 (07:44→08:52)
[2020-07-05] MEDS: CALCIUM (CARBONATE)/VITAMIN D 500 MG-200 UNIT TABLET PO SCH ×4 (07:44→21:20)
[2020-07-05] MEDS: TACROLIMUS 0.5 MG CAPSULE PO SCH ×3 (07:44→21:20)
[2020-07-05] MEDS: FOLIC ACID 1 MG TABLET PO SCH ×3 (07:44→21:20)
[2020-07-05] MEDS: NYSTATIN 500,000 UNIT/5 ML UDCUP SWISH/SWAL SCH ×5 (07:44→21:20)
[2020-07-05] MEDS: MENTHOL/ZINC OXIDE OINT 71 GM JAR TOP SCH ×2 (07:45→08:51)
[2020-07-05] MEDS: buPROPion XL 150 MG TABLET PO SCH ×2 (07:45→08:52)
[2020-07-05] MEDS: calcitrioL 0.25 MCG CAPSULE PO SCH ×2 (07:45→08:52)
[2020-07-05] MEDS: FLUTICASONE/SALMETEROL 500-50 DISKUS 14 DOSE INH SCH ×3 (07:45→22:24)
[2020-07-05] MEDS: PANTOPRAZOLE 40 MG TABLET PO SCH ×3 (07:45→21:20)
[2020-07-05] MEDS: NYSTATIN CREAM 15 GM TUBE TOP SCH ×3 (07:45→22:24)
[2020-07-05] MEDS: DEXTROSE 5% NACL 0.45% 1,000 ML IV SCH ×2 (07:46→15:36)
[2020-07-05] MEDS ORDERED: VANCOMYCIN INJ 1,000 MG in SODIUM CHLORIDE 0.9% 250 ML IV SCH (10:00)
[2020-07-05] MEDS ORDERED: LACTATED RINGERS 1,000 ML IV SCH (10:00)
[2020-07-05] MEDS: ONDANSETRON 4 MG/2 ML VIAL IV PRN ×2 (10:45→21:19)
[2020-07-05] MEDS: COLESEVELAM 625 MG TABLET PO SCH (16:51)
[2020-07-05] MEDS: LORATADINE 10 MG TABLET PO SCH (21:19)
[2020-07-05] MEDS: SERTRALINE 100 MG TABLET PO SCH (21:20)
[2020-07-05] MEDS: ZALEPLON 5 MG CAPSULE PO SCH (21:20)
[2020-07-05] MEDS: ACETAMINOPHEN 325 MG TABLET PO PRN (22:24)
[2020-07-06] MEDS: VANCOMYCIN 50 MG/ML 60 ML/BOTTLE PO SCH ×4 (00:20→17:27)
[2020-07-06] MEDS: LEVOTHYROXINE 50 MCG TABLET PO SCH (05:38)
[2020-07-06] MEDS: IPRATROPIUM 500 MCG/2.5 ML NEB RESP TX SCH ×2 (07:00→11:04)
[2020-07-06 09:07] LABS: Calcium 6.7 MG/DL (8.5-10.1); Osmolality,Calculated 287.7 MOS/KG (273-304)
[2020-07-06] MEDS ORDERED: MAGNESIUM SULF RIDER 4 GM in PREMIX 1 EACH IV ONE (10:15)
[2020-07-06] MEDS: FLUTICASONE/SALMETEROL 500-50 DISKUS 14 DOSE INH SCH (10:18)
[2020-07-06] MEDS: DEXTROSE 5% NACL 0.45% 1,000 ML IV SCH ×3 (10:19→16:35)
[2020-07-06] MEDS: COLESEVELAM 625 MG TABLET PO SCH ×2 (10:20→16:35)
[2020-07-06] MEDS: MYCOPHENOLATE MOFETIL 250 MG CAPSULE PO SCH (10:21)
[2020-07-06] MEDS: TACROLIMUS 0.5 MG CAPSULE PO SCH (10:21)
[2020-07-06] MEDS: PANTOPRAZOLE 40 MG TABLET PO SCH (10:22)
[2020-07-06] MEDS: buPROPion XL 150 MG TABLET PO SCH (10:22)
[2020-07-06] MEDS: calcitrioL 0.25 MCG CAPSULE PO SCH (10:22)
[2020-07-06] MEDS: NYSTATIN 500,000 UNIT/5 ML UDCUP SWISH/SWAL SCH ×3 (10:22→16:35)
[2020-07-06] MEDS: FOLIC ACID 1 MG TABLET PO SCH (10:22)
[2020-07-06] MEDS: CALCIUM (CARBONATE)/VITAMIN D 500 MG-200 UNIT TABLET PO SCH ×2 (10:22→16:33)
[2020-07-06] MEDS: MENTHOL/ZINC OXIDE OINT 71 GM JAR TOP SCH (10:23)
[2020-07-06] MEDS: NYSTATIN CREAM 15 GM TUBE TOP SCH (10:25)
[2020-07-06] MEDS: CHOLECALCIFEROL 1,000 UNIT TABLET PO SCH (10:25)
[2020-07-06 11:30] VITALS: BP 152/74
== END 2020-07-06 17:50 | disposition home or self-care (01) | DRG 372 ==
LOC: EDBD → EDUNIT# → N.ED 12:04 → N.EDINP 18:04 → SUATTDRO 18:04 → N.3E 21:45
PROVIDERS: ADMIT Internal Medicine Geriatric Medicine; ATTEND Internal Medicine

== ENCOUNTER 2020-07-15 15:25 | Inpatient (IN) ==
[2020-07-15 16:57] LABS: Eosinophils % 0.7 % (0.00-10.9); Hematocrit 31.7 VOL% (35.7-47.0); Hemoglobin 10.3 GM/DL (12.0-16.0); Immature Granulocytes Absolute 0.12 #; Lymphocytes # 0.5 10*3/uL (1.4-4.0); Lymphocytes % 15.5 % (21.3-54.2); Mean Corpuscular HGB Conc 32.5 GM/DL (32-36); Mean Corpuscular Volume 88.3 FL (87-102); Mean Platelet Volume 11.1 FL (9.6-12.0); Monocytes % 9.8 % (1.7-12.7); Platelet Count 186 T/CUMM (130-400); Red Blood Count 3.59 MC/CUMM (3.8-5.5); Red Cell Distribution Width 15.9 % (9.3-17.3)
[2020-07-15 17:26] LABS: Albumin 2.6 G/DL (3.4-5.0); Bilirubin,Total 0.6 MG/DL (0.2-1.0); Calcium 7.7 MG/DL (8.5-10.1); Osmolality,Calculated 288.7 MOS/KG (273-304); Total Protein 6.3 G/DL (6.4-8.3)
[2020-07-15 17:39] LABS: Ferritin 888.1 ng/ml (8-252)
[2020-07-15] MEDS ORDERED: GLUCAGON 1 MG VIAL IM PRN (18:38)
[2020-07-15] MEDS ORDERED: DEXTROSE 50% 25 GM/50 ML VIAL IV PRN (18:38)
[2020-07-15 18:40] LABS: Lymphocytes 13 % (20-55); Segmented Neutrophils 73 % (50-85); Total Cells Counted 100
[2020-07-15 18:41] LABS: Anisocytosis 1+; Burr Cells Few; Microcytosis 1+; Ovalocytes Few
[2020-07-15 18:42] LABS: Platelet Estimate Adequate; Tear Drop Cells Few
[2020-07-15] MEDS ORDERED: AZITHROMYCIN INJ 250 MG in SODIUM CHLORIDE 0.9% 250 ML IV SCH (19:30)
[2020-07-15] MEDS ORDERED: cefTRIAXone 1,000 MG VIAL ONE (20:36)
[2020-07-15] MEDS ORDERED: SODIUM CHLORIDE 0.9% 100 ML IV ONE (20:36)
[2020-07-15] MEDS ORDERED: SODIUM BICARBONATE 50 MEQ/50 ML VIAL IV ONE ×2 (20:38→23:30)
[2020-07-15] MEDS ORDERED: MAGNESIUM SULF RIDER 2 GM in PREMIX 1 EACH IV ONE (20:38)
[2020-07-15] MEDS ORDERED: FLUTICASONE/SALMETEROL 500-50 DISKUS 14 DOSE INH SCH (21:00)
[2020-07-15] MEDS: FOLIC ACID 1 MG TABLET PO SCH (23:38)
[2020-07-15] MEDS: HEPARIN 5,000 UNIT/1 ML VIAL SUBCUT SCH (23:39)
[2020-07-15] MEDS: MYCOPHENOLATE MOFETIL 250 MG CAPSULE PO SCH (23:39)
[2020-07-15] MEDS: LEVOTHYROXINE 50 MCG TABLET PO SCH (23:39)
[2020-07-15] MEDS: TACROLIMUS 0.5 MG CAPSULE PO SCH (23:39)
[2020-07-15] MEDS: LACTATED RINGERS 1,000 ML IV SCH (23:39)
[2020-07-15] MEDS: VANCOMYCIN 50 MG/ML 60 ML/BOTTLE PO SCH (23:54)
[2020-07-15] MEDS: HydrOXYzine PAMOATE 25 MG CAPSULE PO PRN (23:56)
[2020-07-16 02:41] LABS: Eosinophils % 0.5 % (0.00-10.9); Hematocrit 28.8 VOL% (35.7-47.0); Hemoglobin 9.3 GM/DL (12.0-16.0); Immature Granulocytes % 3.7 %; Immature Granulocytes Absolute 0.08 #; Lymphocytes # 0.2 10*3/uL (1.4-4.0); Lymphocytes % 7.8 % (21.3-54.2); Mean Corpuscular HGB Conc 32.3 GM/DL (32-36); Mean Corpuscular Volume 88.3 FL (87-102); Mean Platelet Volume 10.1 FL (9.6-12.0); Monocytes % 6.9 % (1.7-12.7); Neutrophils % 81.1 % (38.7-73.9); Platelet Count 166 T/CUMM (130-400); Red Blood Count 3.26 MC/CUMM (3.8-5.5); Red Cell Distribution Width 15.7 % (9.3-17.3); White Blood Count 2.2 T/CUMM (4-12)
[2020-07-16 03:05] LABS: Risk Ratio 2.38; VLDL CHOLESTEROL 12.6 MG/DL
[2020-07-16 03:13] LABS: Calcium 7.5 MG/DL (8.5-10.1); Osmolality,Calculated 292.6 MOS/KG (273-304); Thyroid Stimulating Hormone 2.24 uIU/ml (0.358-3.74)
[2020-07-16 04:35] LABS: Band Neutrophils 2 % (0-10); Lymphocytes 6 % (20-55); Microcytosis Slight; Platelet Estimate Normal; Segmented Neutrophils 89 % (50-85); Total Cells Counted 100
[2020-07-16 04:36] LABS: Hypochromasia Slight; Tear Drop Cells Few
[2020-07-16 04:37] LABS: Schistocytes Few
[2020-07-16] MEDS: methylPREDNISolone SOD SUC 40 MG/1 ML VIAL IV SCH ×4 (04:48→21:30)
[2020-07-16] MEDS: cefTRIAXone 1,000 MG in SYRINGE 1 EACH IV SCH ×2 (04:48→21:35)
[2020-07-16] MEDS: HEPARIN 5,000 UNIT/1 ML VIAL SUBCUT SCH ×3 (05:52→22:38)
[2020-07-16] MEDS: VANCOMYCIN 50 MG/ML 60 ML/BOTTLE PO SCH ×3 (05:52→17:01)
[2020-07-16] MEDS: IPRATROPIUM 500 MCG/2.5 ML NEB RESP TX SCH ×2 (06:35→17:25)
[2020-07-16] MEDS ORDERED: FLUTICASONE 50 MCG NASAL SPRAY 16 GM BOTTLE BOTH NARES PRN (07:13)
[2020-07-16] MEDS ORDERED: SODIUM BICARBONATE 50 MEQ/50 ML VIAL IV ONE (07:19)
[2020-07-16] MEDS: DEXTROSE 5% NACL 0.45% 1,000 ML IV SCH ×3 (08:39→17:02)
[2020-07-16] MEDS: TACROLIMUS 0.5 MG CAPSULE PO SCH ×3 (08:41→18:29)
[2020-07-16] MEDS: ASCORBIC ACID 500 MG TABLET PO SCH (08:42)
[2020-07-16] MEDS: ZINC SULFATE 220 MG CAPSULE PO SCH (08:42)
[2020-07-16] MEDS: MYCOPHENOLATE MOFETIL 250 MG CAPSULE PO SCH (08:42)
[2020-07-16] MEDS: calcitrioL 0.25 MCG CAPSULE PO SCH (08:42)
[2020-07-16] MEDS: FOLIC ACID 1 MG TABLET PO SCH ×2 (08:42→21:30)
[2020-07-16] MEDS: AZITHROMYCIN 250 MG TABLET PO SCH (08:42)
[2020-07-16] MEDS: buPROPion XL 150 MG TABLET PO SCH (08:42)
[2020-07-16] MEDS: LACTATED RINGERS 1,000 ML IV SCH (08:47)
[2020-07-16] MEDS ORDERED: DEXAMETHASONE INJ 10 MG in SODIUM CHLORIDE 0.9% 50 ML IV SCH (09:00)
[2020-07-16] MEDS ORDERED: NON-FORMULARY MEDICATION (Omeprazole 40 mg capsule,delayed release(DR/EC)) PO SCH (09:00)
[2020-07-16] MEDS: PANTOPRAZOLE 40 MG TABLET PO SCH ×2 (10:01→21:30)
[2020-07-16] MEDS: ACETAMINOPHEN 325 MG TABLET PO PRN (10:01)
[2020-07-16] MEDS: CALCIUM (CARBONATE)/VITAMIN D 500 MG-200 UNIT TABLET PO SCH ×3 (10:01→21:30)
[2020-07-16] MEDS ORDERED: SODIUM CHLORIDE 0.9% 1,000 ML IV PRN (11:41)
[2020-07-16] MEDS: ALPRAZolam 0.25 MG TABLET PO PRN (14:32)
[2020-07-16] MEDS: ZALEPLON 5 MG CAPSULE PO SCH (21:30)
[2020-07-16] MEDS: LEVOTHYROXINE 50 MCG TABLET PO SCH (21:30)
[2020-07-16] MEDS: LORATADINE 10 MG TABLET PO SCH (21:30)
[2020-07-16] MEDS: MONTELUKAST 10 MG TABLET PO SCH (21:30)
[2020-07-16] MEDS: SERTRALINE 100 MG TABLET PO SCH (21:30)
[2020-07-17] MEDS: VANCOMYCIN 50 MG/ML 60 ML/BOTTLE PO SCH ×5 (00:46→17:39)
[2020-07-17] MEDS: DEXTROSE 5% NACL 0.45% 1,000 ML IV SCH ×2 (00:46→08:29)
[2020-07-17 05:26] LABS: Hemoglobin 8.8 GM/DL (12.0-16.0); Immature Granulocytes % 6.2 %; Immature Granulocytes Absolute 0.08 #; Lymphocytes # 0.2 10*3/uL (1.4-4.0); Lymphocytes % 11.5 % (21.3-54.2); Mean Corpuscular HGB Conc 31.4 GM/DL (32-36); Mean Corpuscular Volume 89.2 FL (87-102); Mean Platelet Volume 9.8 FL (9.6-12.0); Monocytes % 6.9 % (1.7-12.7); Neutrophils % 75.4 % (38.7-73.9); Platelet Count 148 T/CUMM (130-400); Red Blood Count 3.14 MC/CUMM (3.8-5.5); Red Cell Distribution Width 15.8 % (9.3-17.3); White Blood Count 1.3 T/CUMM (4-12)
[2020-07-17] MEDS: ACETAMINOPHEN 325 MG TABLET PO PRN ×2 (05:30→14:29)
[2020-07-17] MEDS: HEPARIN 5,000 UNIT/1 ML VIAL SUBCUT SCH ×3 (05:33→21:00)
[2020-07-17] MEDS: methylPREDNISolone SOD SUC 40 MG/1 ML VIAL IV SCH ×3 (05:33→22:38)
[2020-07-17 05:52] LABS: Ferritin 644.1 ng/ml (8-252)
[2020-07-17 05:58] LABS: Band Neutrophils 3 % (0-10); Lymphocytes 9 % (20-55); Segmented Neutrophils 77 % (50-85); Total Cells Counted 100
[2020-07-17 05:59] LABS: Acanthocytes Few; Hypochromasia 1+; Microcytosis 1+; Tear Drop Cells Slight
[2020-07-17 06:00] LABS: Burr Cells Few; Ovalocytes Slight; Platelet Estimate Adequate; Poikilocytosis 1+
[2020-07-17 06:05] LABS: Albumin 2.3 G/DL (3.4-5.0); Bilirubin,Total 0.6 MG/DL (0.2-1.0); Calcium 7.5 MG/DL (8.5-10.1); Osmolality,Calculated 293.3 MOS/KG (273-304)
[2020-07-17] MEDS: TACROLIMUS 0.5 MG CAPSULE PO SCH ×3 (08:27→18:23)
[2020-07-17] MEDS: buPROPion XL 150 MG TABLET PO SCH (08:28)
[2020-07-17] MEDS: ASCORBIC ACID 500 MG TABLET PO SCH (08:28)
[2020-07-17] MEDS: PANTOPRAZOLE 40 MG TABLET PO SCH ×2 (08:28→21:00)
[2020-07-17] MEDS: calcitrioL 0.25 MCG CAPSULE PO SCH (08:28)
[2020-07-17] MEDS: FOLIC ACID 1 MG TABLET PO SCH ×2 (08:28→21:00)
[2020-07-17] MEDS: CALCIUM (CARBONATE)/VITAMIN D 500 MG-200 UNIT TABLET PO SCH ×3 (08:28→21:00)
[2020-07-17] MEDS: AZITHROMYCIN 250 MG TABLET PO SCH (08:29)
[2020-07-17] MEDS: ALPRAZolam 0.25 MG TABLET PO PRN ×2 (09:36→21:15)
[2020-07-17] MEDS: SODIUM BICARB INJ 150 MEQ in DEXTROSE 5% 850 ML IV SCH (16:32)
[2020-07-17] MEDS: LORATADINE 10 MG TABLET PO SCH (21:00)
[2020-07-17] MEDS: LEVOTHYROXINE 50 MCG TABLET PO SCH (21:00)
[2020-07-17] MEDS: MONTELUKAST 10 MG TABLET PO SCH (21:00)
[2020-07-17] MEDS: SERTRALINE 100 MG TABLET PO SCH (21:00)
[2020-07-17] MEDS: cefTRIAXone 1,000 MG in SYRINGE 1 EACH IV SCH (21:09)
[2020-07-17] MEDS: ZALEPLON 5 MG CAPSULE PO SCH (21:46)
[2020-07-18] MEDS: VANCOMYCIN 50 MG/ML 60 ML/BOTTLE PO SCH ×4 (00:30→17:05)
[2020-07-18] MEDS: SODIUM BICARB INJ 150 MEQ in DEXTROSE 5% 850 ML IV SCH ×3 (02:36→21:51)
[2020-07-18] MEDS: methylPREDNISolone SOD SUC 40 MG/1 ML VIAL IV SCH ×3 (05:30→21:43)
[2020-07-18] MEDS: HEPARIN 5,000 UNIT/1 ML VIAL SUBCUT SCH ×3 (05:36→21:40)
[2020-07-18 06:18] LABS: Hematocrit 25.1 VOL% (35.7-47.0); Hemoglobin 8.1 GM/DL (12.0-16.0); Immature Granulocytes Absolute 0.13 #; Lymphocytes # 0.1 10*3/uL (1.4-4.0); Mean Corpuscular HGB Conc 32.3 GM/DL (32-36); Mean Corpuscular Volume 87.8 FL (87-102); Mean Platelet Volume 11.2 FL (9.6-12.0); Platelet Count 155 T/CUMM (130-400); Red Blood Count 2.86 MC/CUMM (3.8-5.5); Red Cell Distribution Width 15.3 % (9.3-17.3)
[2020-07-18 06:41] LABS: Ferritin 628.8 ng/ml (8-252)
[2020-07-18 06:43] LABS: Albumin 2.2 G/DL (3.4-5.0); Bilirubin,Total 1.3 MG/DL (0.2-1.0); Calcium 7.3 MG/DL (8.5-10.1); Total Protein 5.4 G/DL (6.4-8.3)
[2020-07-18 07:03] LABS: Band Neutrophils 1 % (0-10); Hypochromasia Slight; Lymphocytes 9 % (20-55); Platelet Estimate Normal; Segmented Neutrophils 82 % (50-85); Total Cells Counted 100
[2020-07-18] MEDS: calcitrioL 0.25 MCG CAPSULE PO SCH (08:46)
[2020-07-18] MEDS: TACROLIMUS 0.5 MG CAPSULE PO SCH ×2 (08:46→21:37)
[2020-07-18] MEDS: CALCIUM (CARBONATE)/VITAMIN D 500 MG-200 UNIT TABLET PO SCH ×3 (08:46→21:38)
[2020-07-18] MEDS: FOLIC ACID 1 MG TABLET PO SCH ×2 (08:47→21:38)
[2020-07-18] MEDS: ZINC SULFATE 220 MG CAPSULE PO SCH (08:47)
[2020-07-18] MEDS: buPROPion XL 150 MG TABLET PO SCH (08:47)
[2020-07-18] MEDS: AZITHROMYCIN 250 MG TABLET PO SCH (08:47)
[2020-07-18] MEDS: PANTOPRAZOLE 40 MG TABLET PO SCH ×2 (08:48→21:38)
[2020-07-18] MEDS: ASCORBIC ACID 500 MG TABLET PO SCH (08:48)
[2020-07-18] MEDS: ALPRAZolam 0.25 MG TABLET PO PRN ×2 (10:55→21:38)
[2020-07-18] MEDS: cefTRIAXone 1,000 MG in SYRINGE 1 EACH IV SCH (21:37)
[2020-07-18] MEDS: ZALEPLON 5 MG CAPSULE PO SCH (21:37)
[2020-07-18] MEDS: MONTELUKAST 10 MG TABLET PO SCH (21:38)
[2020-07-18] MEDS: LEVOTHYROXINE 50 MCG TABLET PO SCH (21:38)
[2020-07-18] MEDS: LORATADINE 10 MG TABLET PO SCH (21:38)
[2020-07-18] MEDS: SERTRALINE 100 MG TABLET PO SCH (21:38)
[2020-07-19 06:26] LABS: Calcium 7.1 MG/DL (8.5-10.1); Ferritin 712.5 ng/ml (8-252); Osmolality,Calculated 294.8 MOS/KG (273-304)
[2020-07-19] MEDS: methylPREDNISolone SOD SUC 40 MG/1 ML VIAL IV SCH (06:35)
[2020-07-19] MEDS: HEPARIN 5,000 UNIT/1 ML VIAL SUBCUT SCH ×3 (06:40→22:47)
[2020-07-19] MEDS: VANCOMYCIN 50 MG/ML 60 ML/BOTTLE PO SCH ×5 (06:41→23:20)
[2020-07-19] MEDS: SODIUM BICARB INJ 150 MEQ in DEXTROSE 5% 850 ML IV SCH (07:51)
[2020-07-19] MEDS: AZITHROMYCIN 250 MG TABLET PO SCH (08:56)
[2020-07-19] MEDS: ASCORBIC ACID 500 MG TABLET PO SCH (08:56)
[2020-07-19] MEDS: PANTOPRAZOLE 40 MG TABLET PO SCH ×2 (08:57→20:51)
[2020-07-19] MEDS: calcitrioL 0.25 MCG CAPSULE PO SCH (08:57)
[2020-07-19] MEDS: ALPRAZolam 0.25 MG TABLET PO PRN (08:58)
[2020-07-19] MEDS: buPROPion XL 150 MG TABLET PO SCH (08:58)
[2020-07-19] MEDS: CALCIUM (CARBONATE)/VITAMIN D 500 MG-200 UNIT TABLET PO SCH ×3 (08:58→20:51)
[2020-07-19] MEDS: TACROLIMUS 0.5 MG CAPSULE PO SCH ×2 (08:58→19:23)
[2020-07-19] MEDS: FOLIC ACID 1 MG TABLET PO SCH ×2 (08:58→20:51)
[2020-07-19] MEDS ORDERED: acetaZOLAMIDE 250 MG TABLET PO ONE (10:10)
[2020-07-19] MEDS ORDERED: MAGNESIUM SULF RIDER 2 GM in PREMIX 1 EACH IV ONE (10:13)
[2020-07-19] MEDS ORDERED: POTASSIUM CHLORIDE 20 MEQ TABLET PO ONE (10:13)
[2020-07-19] MEDS: DEXAMETHASONE 4 MG/1 ML VIAL IV SCH (11:24)
[2020-07-19] MEDS: ALBUTEROL INHALER 18 GM INH SCH ×2 (13:17→20:54)
[2020-07-19] MEDS: ALPRAZolam 0.5 MG TABLET PO PRN (19:23)
[2020-07-19] MEDS: ZALEPLON 5 MG CAPSULE PO SCH (20:50)
[2020-07-19] MEDS: MONTELUKAST 10 MG TABLET PO SCH (20:51)
[2020-07-19] MEDS: LORATADINE 10 MG TABLET PO SCH (20:51)
[2020-07-19] MEDS: SERTRALINE 100 MG TABLET PO SCH (20:51)
[2020-07-19] MEDS: LEVOTHYROXINE 50 MCG TABLET PO SCH (20:51)
[2020-07-19] MEDS: cefTRIAXone 1,000 MG in SYRINGE 1 EACH IV SCH (20:53)
[2020-07-20] MEDS: ALBUTEROL INHALER 18 GM INH SCH ×4 (01:55→18:16)
[2020-07-20] MEDS: ALPRAZolam 0.5 MG TABLET PO PRN ×2 (04:07→10:19)
[2020-07-20] MEDS: HEPARIN 5,000 UNIT/1 ML VIAL SUBCUT SCH ×3 (05:54→22:31)
[2020-07-20] MEDS: VANCOMYCIN 50 MG/ML 60 ML/BOTTLE PO SCH ×3 (05:54→18:36)
[2020-07-20 06:34] LABS: Albumin 2.2 G/DL (3.4-5.0); Bilirubin,Total 0.5 MG/DL (0.2-1.0); Calcium 7.2 MG/DL (8.5-10.1); Total Protein 5.9 G/DL (6.4-8.3)
[2020-07-20] MEDS: DEXAMETHASONE 4 MG/1 ML VIAL IV SCH (09:51)
[2020-07-20] MEDS: PANTOPRAZOLE 40 MG TABLET PO SCH ×2 (09:51→20:54)
[2020-07-20] MEDS: ASCORBIC ACID 500 MG TABLET PO SCH (09:51)
[2020-07-20] MEDS: CALCIUM (CARBONATE)/VITAMIN D 500 MG-200 UNIT TABLET PO SCH ×3 (09:51→20:54)
[2020-07-20] MEDS: FOLIC ACID 1 MG TABLET PO SCH ×2 (09:51→20:54)
[2020-07-20] MEDS: TACROLIMUS 0.5 MG CAPSULE PO SCH (09:51)
[2020-07-20] MEDS: calcitrioL 0.25 MCG CAPSULE PO SCH (09:51)
[2020-07-20] MEDS: buPROPion XL 150 MG TABLET PO SCH (09:51)
[2020-07-20] MEDS: AZITHROMYCIN 250 MG TABLET PO SCH (09:52)
[2020-07-20] MEDS: ZINC SULFATE 220 MG CAPSULE PO SCH (09:52)
[2020-07-20] MEDS ORDERED: guaiFENesin 200 MG/10 ML UDCUP PO PRN (10:32)
[2020-07-20] MEDS ORDERED: METHOCARBAMOL 500 MG TABLET PO PRN (10:33)
[2020-07-20] MEDS ORDERED: MEROPENEM 500 MG in SODIUM CHLORIDE 0.9% 100 ML IV SCH (17:00)
[2020-07-20 17:51] LABS: Basophils % 0.2 % (0.0-0.8); Eosinophils % 0.3 % (0.00-10.9); Hematocrit 27.9 VOL% (35.7-47.0); Hemoglobin 8.7 GM/DL (12.0-16.0); Immature Granulocytes % 9.3 %; Immature Granulocytes Absolute 0.61 #; Lymphocytes # 0.3 10*3/uL (1.4-4.0); Lymphocytes % 4.1 % (21.3-54.2); Mean Corpuscular HGB Conc 31.2 GM/DL (32-36); Mean Corpuscular Volume 89.7 FL (87-102); Mean Platelet Volume 10.9 FL (9.6-12.0); Monocytes % 4.1 % (1.7-12.7); Platelet Count 180 T/CUMM (130-400); Red Blood Count 3.11 MC/CUMM (3.8-5.5); Red Cell Distribution Width 14.8 % (9.3-17.3); White Blood Count 6.6 T/CUMM (4-12)
[2020-07-20 18:13] LABS: Band Neutrophils 7 % (0-10); Lymphocytes 3 % (20-55); Metamyelocytes 2 %; Segmented Neutrophils 86 % (50-85); Total Cells Counted 100
[2020-07-20 18:14] LABS: Anisocytosis Slight; Elliptocytes Few; Microcytosis Slight; Platelet Estimate Normal; Schistocytes Slight
[2020-07-20] MEDS: MEROPENEM 500 MG in SODIUM CHLORIDE 0.9% 100 ML IV SCH (18:15)
[2020-07-20] MEDS: LORATADINE 10 MG TABLET PO SCH (20:54)
[2020-07-20] MEDS: MONTELUKAST 10 MG TABLET PO SCH (20:54)
[2020-07-20] MEDS: ZALEPLON 5 MG CAPSULE PO SCH (20:54)
[2020-07-20] MEDS: SERTRALINE 100 MG TABLET PO SCH (20:55)
[2020-07-20] MEDS: LEVOTHYROXINE 50 MCG TABLET PO SCH (20:55)
[2020-07-21] MEDS: ALPRAZolam 0.5 MG TABLET PO PRN ×2 (00:30→23:04)
[2020-07-21] MEDS: MEROPENEM 500 MG in SODIUM CHLORIDE 0.9% 100 ML IV SCH ×3 (00:46→16:32)
[2020-07-21] MEDS: VANCOMYCIN 50 MG/ML 60 ML/BOTTLE PO SCH ×2 (00:46→05:24)
[2020-07-21] MEDS: ALBUTEROL INHALER 18 GM INH SCH ×4 (00:49→23:18)
[2020-07-21] MEDS: HEPARIN 5,000 UNIT/1 ML VIAL SUBCUT SCH ×3 (05:24→23:04)
[2020-07-21 07:00] LABS: Calcium 7.5 MG/DL (8.5-10.1)
[2020-07-21 07:03] LABS: Calcium 7.6 MG/DL (8.5-10.1); Ferritin 1158.5 ng/ml (8-252); Osmolality,Calculated 284.1 MOS/KG (273-304)
[2020-07-21 07:07] LABS: Basophils % 0.4 % (0.0-0.8); Eosinophils # 0.1 10*3/uL (0.0-0.87); Eosinophils % 1.5 % (0.00-10.9); Hemoglobin 9.1 GM/DL (12.0-16.0); Immature Granulocytes % 13.1 %; Immature Granulocytes Absolute 1.07 #; Lymphocytes # 0.4 10*3/uL (1.4-4.0); Lymphocytes % 5.3 % (21.3-54.2); Mean Corpuscular HGB Conc 31.4 GM/DL (32-36); Mean Corpuscular Volume 90.6 FL (87-102); Monocytes % 3.9 % (1.7-12.7); Neutrophils % 75.8 % (38.7-73.9); Platelet Count 189 T/CUMM (130-400); Red Cell Distribution Width 14.8 % (9.3-17.3); White Blood Count 8.2 T/CUMM (4-12)
[2020-07-21 07:38] LABS: Band Neutrophils 1 % (0-10); Hypochromasia 1+; Lymphocytes 6 % (20-55); Microcytosis 1+; Ovalocytes Slight; Platelet Estimate Adequate; Segmented Neutrophils 88 % (50-85); Total Cells Counted 100
[2020-07-21] MEDS: FOLIC ACID 1 MG TABLET PO SCH ×2 (08:16→23:04)
[2020-07-21] MEDS: DEXAMETHASONE 4 MG/1 ML VIAL IV SCH (08:16)
[2020-07-21] MEDS: TACROLIMUS 0.5 MG CAPSULE PO SCH ×2 (08:17→18:00)
[2020-07-21] MEDS: CALCIUM (CARBONATE)/VITAMIN D 500 MG-200 UNIT TABLET PO SCH ×3 (08:17→23:04)
[2020-07-21] MEDS: PANTOPRAZOLE 40 MG TABLET PO SCH ×2 (08:17→23:03)
[2020-07-21] MEDS: calcitrioL 0.25 MCG CAPSULE PO SCH (08:17)
[2020-07-21] MEDS: buPROPion XL 150 MG TABLET PO SCH (08:18)
[2020-07-21] MEDS: ASCORBIC ACID 500 MG TABLET PO SCH (08:18)
[2020-07-21 09:07] VITALS: BP 148/83
[2020-07-21] MEDS: LACTOBACILLUS RHAMNOSUS GG CAPSULE PO SCH (10:32)
[2020-07-21] MEDS ORDERED: LORazepam 2 MG/1 ML VIAL IV ONE (12:00)
[2020-07-21 14:08] LABS: Bacteria,Urine Occasional /HPF (Few); Bilirubin,Urine Negative (Negative); Blood, Urine Negative (Negative); Glucose,Urine (UA) Negative (Negative); Ketones,Urine 20 mg/dL (Negative); Mucus,Urine Occasional /LPF (Occasional); Nitrite,Urine Negative (Negative); Protein,Urine 100 MG/DL; RBC,Urine 4 /HPF (0-4); Squamous Epithelial Cell,Urine Occasional /HPF (0-10); Urine Appearance CLEAR (Clear); Urine Color Yellow (Yellow); Urine Specific Gravity 1.017 (1.001-1.035); Urine Urobilinogen < 2.0 EU/DL (0.2-1.0); WBC,Urine 2 /HPF (0-6)
[2020-07-21] MEDS: SODIUM CHLORIDE 0.9% 1,000 ML IV SCH (16:31)
[2020-07-21 21:09] LABS: ABG Base Excess -3.3 MMOL/L (-2.5-2.5); ABG HCO3 21.6 MMOL/L (20-26); ABG Oxygen Saturation 93.9 % (95-100); ABG PCO2 38.1 MM HG (35-48); ABG PH 7.364 (7.35-7.45); ABG PO2 78.9 MM HG (80-95); ABG TCO2 19.3 MMOL/L (23-27); Allen Test Positive; Pt O2 Delivery Device Other
[2020-07-21] MEDS: LEVOTHYROXINE 50 MCG TABLET PO SCH (23:03)
[2020-07-21] MEDS: SERTRALINE 100 MG TABLET PO SCH (23:04)
[2020-07-21] MEDS: MONTELUKAST 10 MG TABLET PO SCH (23:04)
[2020-07-21] MEDS: HydrOXYzine PAMOATE 25 MG CAPSULE PO PRN (23:04)
[2020-07-21] MEDS: ZALEPLON 5 MG CAPSULE PO SCH (23:05)
[2020-07-21] MEDS: LORATADINE 10 MG TABLET PO SCH (23:13)
[2020-07-22] MEDS: MEROPENEM 500 MG in SODIUM CHLORIDE 0.9% 100 ML IV SCH ×3 (01:15→16:15)
[2020-07-22] MEDS: SODIUM CHLORIDE 0.9% 1,000 ML IV SCH (02:54)
[2020-07-22 04:53] LABS: Allen Test Positive; Pt O2 Delivery Device BIPAP
[2020-07-22 04:54] LABS: ABG Base Excess -4.5 MMOL/L (-2.5-2.5); ABG HCO3 20.7 MMOL/L (20-26); ABG Oxygen Saturation 96.6 % (95-100); ABG PCO2 36.8 MM HG (35-48); ABG PH 7.354 (7.35-7.45); ABG PO2 94.8 MM HG (80-95)
[2020-07-22 05:10] LABS: Basophils % 0.4 % (0.0-0.8); Eosinophils # 0.1 10*3/uL (0.0-0.87); Eosinophils % 1.2 % (0.00-10.9); Hematocrit 27.6 VOL% (35.7-47.0); Hemoglobin 8.4 GM/DL (12.0-16.0); Immature Granulocytes % 16.7 %; Immature Granulocytes Absolute 1.23 #; Lymphocytes # 0.4 10*3/uL (1.4-4.0); Mean Corpuscular HGB Conc 30.4 GM/DL (32-36); Mean Corpuscular Volume 92.3 FL (87-102); Mean Platelet Volume 10.6 FL (9.6-12.0); Monocytes % 4.7 % (1.7-12.7); Platelet Count 191 T/CUMM (130-400); Red Blood Count 2.99 MC/CUMM (3.8-5.5); Red Cell Distribution Width 15.1 % (9.3-17.3); White Blood Count 7.4 T/CUMM (4-12)
[2020-07-22 05:31] LABS: Band Neutrophils 7 % (0-10); Eosinophils 1 % (0-10); Lymphocytes 7 % (20-55); Platelet Estimate Adequate; Segmented Neutrophils 80 % (50-85); Total Cells Counted 100
[2020-07-22 05:32] LABS: Hypochromasia 2+; Microcytosis 1+; Ovalocytes Slight
[2020-07-22] MEDS: ALBUTEROL INHALER 18 GM INH SCH ×4 (05:45→20:03)
[2020-07-22] MEDS: HEPARIN 5,000 UNIT/1 ML VIAL SUBCUT SCH ×2 (07:18→13:16)
[2020-07-22 07:55] LABS: Calcium 7.5 MG/DL (8.5-10.1); Ferritin 1203.8 ng/ml (8-252); Osmolality,Calculated 293.6 MOS/KG (273-304)
[2020-07-22] MEDS: buPROPion XL 150 MG TABLET PO SCH (08:06)
[2020-07-22] MEDS: ASCORBIC ACID 500 MG TABLET PO SCH (08:06)
[2020-07-22] MEDS: LACTOBACILLUS RHAMNOSUS GG CAPSULE PO SCH (08:07)
[2020-07-22] MEDS: DEXAMETHASONE 4 MG/1 ML VIAL IV SCH (08:07)
[2020-07-22] MEDS: ZINC GLUCONATE 50 MG TABLET PO SCH (08:07)
[2020-07-22] MEDS: calcitrioL 0.25 MCG CAPSULE PO SCH (08:07)
[2020-07-22] MEDS: FOLIC ACID 1 MG TABLET PO SCH ×2 (08:07→20:27)
[2020-07-22] MEDS: PANTOPRAZOLE 40 MG TABLET PO SCH ×2 (08:07→20:27)
[2020-07-22] MEDS ORDERED: HEPARIN 10,000 UNIT/10 ML VIAL IV PRN ×2 (09:14→09:15)
[2020-07-22] MEDS: CALCIUM (CARBONATE)/VITAMIN D 500 MG-200 UNIT TABLET PO SCH (10:31)
[2020-07-22] MEDS: ALPRAZolam 0.5 MG TABLET PO PRN (11:00)
[2020-07-22] MEDS ORDERED: FAMOTIDINE 20 MG/2 ML VIAL IV SCH (11:00)
[2020-07-22] MEDS ORDERED: DEXTROSE 5% 1,000 ML IV SCH (11:00)
[2020-07-22] MEDS: FAMOTIDINE 20 MG/2 ML VIAL IV SCH (12:07)
[2020-07-22] MEDS ORDERED: ENOXAPARIN 30 MG/0.3 ML SYRINGE SUBCUT SCH (13:30)
[2020-07-22] MEDS ORDERED: ALPRAZolam 0.5 MG TABLET PO PRN (13:32)
[2020-07-22] MEDS: methylPREDNISolone SOD SUC 40 MG/1 ML VIAL IV SCH ×2 (13:35→20:25)
[2020-07-22 15:16] LABS: Hepatitis B Surface Ag Result Negative (Negative); Hepatitis C Virus Ab Quant 3.09 Index
[2020-07-22 15:18] LABS: Hepatitis B Surface Ag Quant < 0.10 Index
[2020-07-22] MEDS: TACROLIMUS 0.5 MG CAPSULE PO SCH (18:00)
[2020-07-22] MEDS: LORATADINE 10 MG TABLET PO SCH (20:26)
[2020-07-22] MEDS: MONTELUKAST 10 MG TABLET PO SCH (20:26)
[2020-07-22] MEDS: ENOXAPARIN 30 MG/0.3 ML SYRINGE SUBCUT SCH (20:26)
[2020-07-22] MEDS: LEVOTHYROXINE 50 MCG TABLET PO SCH (20:27)
[2020-07-22] MEDS: SERTRALINE 100 MG TABLET PO SCH (20:31)
[2020-07-22] MEDS: ZALEPLON 5 MG CAPSULE PO SCH (21:17)
[2020-07-23] MEDS: ACETAMINOPHEN 325 MG TABLET PO PRN
[2020-07-23] MEDS: methylPREDNISolone SOD SUC 40 MG/1 ML VIAL IV SCH ×4 (01:00→19:56)
[2020-07-23] MEDS: MEROPENEM 500 MG in SODIUM CHLORIDE 0.9% 100 ML IV SCH ×3 (01:01→16:54)
[2020-07-23] MEDS: MORPHINE 4 MG/1 ML VIAL IV PRN ×2 (01:24→21:09)
[2020-07-23 03:47] LABS: ABG Base Excess -8.5 MMOL/L (-2.5-2.5); ABG HCO3 17.4 MMOL/L (20-26); ABG PCO2 38.8 MM HG (35-48); ABG PH 7.271 (7.35-7.45); ABG TCO2 16.5 MMOL/L (23-27); Allen Test Positive; Pt O2 Delivery Device BIPAP
[2020-07-23] MEDS ORDERED: SODIUM BICARBONATE 50 MEQ/50 ML VIAL IV ONE (04:03)
[2020-07-23] MEDS ORDERED: SODIUM BICARB INJ 50 MEQ in DEXTROSE 5% 1,000 ML IV SCH (04:30)
[2020-07-23 04:38] LABS: Basophils % 0.1 % (0.0-0.8); Hematocrit 29.7 VOL% (35.7-47.0); Immature Granulocytes % 18.8 %; Immature Granulocytes Absolute 2.14 #; Lymphocytes # 0.5 10*3/uL (1.4-4.0); Lymphocytes % 4.3 % (21.3-54.2); Mean Corpuscular HGB Conc 30.3 GM/DL (32-36); Mean Corpuscular Volume 92.5 FL (87-102); Mean Platelet Volume 10.7 FL (9.6-12.0); Monocytes % 2.7 % (1.7-12.7); Neutrophils % 74.1 % (38.7-73.9); Platelet Count 249 T/CUMM (130-400); Red Blood Count 3.21 MC/CUMM (3.8-5.5); Red Cell Distribution Width 15.3 % (9.3-17.3); White Blood Count 11.4 T/CUMM (4-12)
[2020-07-23 04:58] LABS: Albumin 2.4 G/DL (3.4-5.0); Bilirubin,Total 1.2 MG/DL (0.2-1.0); Calcium 8.1 MG/DL (8.5-10.1); Osmolality,Calculated 277.7 MOS/KG (273-304); Total Protein 6.9 G/DL (6.4-8.3)
[2020-07-23 05:02] LABS: Ferritin 1982.9 ng/ml (8-252); Lymphocytes 4 % (20-55); Platelet Estimate Adequate; Segmented Neutrophils 93 % (50-85); Total Cells Counted 100
[2020-07-23 05:03] LABS: Burr Cells Slight; Hypochromasia 1+; Microcytosis 1+; Ovalocytes Slight
[2020-07-23] MEDS: ALBUTEROL INHALER 18 GM INH SCH ×4 (06:19→19:55)
[2020-07-23] MEDS ORDERED: ETOMIDATE 20 MG/10 ML VIAL IV ONE ×2 (07:22→07:48)
[2020-07-23] MEDS ORDERED: SUCCINYLCHOLINE 200 MG/10 ML VIAL ONE (07:23)
[2020-07-23] MEDS ORDERED: SUCCINYLCHOLINE 200 MG/10 ML VIAL IV ONE (07:50)
[2020-07-23] MEDS: PANTOPRAZOLE 40 MG TABLET PO SCH (08:33)
[2020-07-23 08:34] LABS: ABG Base Excess -6.8 MMOL/L (-2.5-2.5); ABG HCO3 20.6 MMOL/L (20-26); ABG Oxygen Saturation 82.3 % (95-100); ABG PCO2 50.7 MM HG (35-48); ABG PH 7.227 (7.35-7.45); ABG PO2 57.1 MM HG (80-95); ABG TCO2 22.2 MMOL/L (23-27); Pt O2 Delivery Device Ventilator
[2020-07-23] MEDS: ASCORBIC ACID 500 MG TABLET PO SCH (08:42)
[2020-07-23] MEDS: LACTOBACILLUS RHAMNOSUS GG CAPSULE PO SCH (08:42)
[2020-07-23] MEDS: calcitrioL 0.25 MCG CAPSULE PO SCH (08:42)
[2020-07-23] MEDS: FOLIC ACID 1 MG TABLET PO SCH ×2 (08:43→20:21)
[2020-07-23] MEDS: ENOXAPARIN 30 MG/0.3 ML SYRINGE SUBCUT SCH ×2 (08:43→20:22)
[2020-07-23] MEDS: ZINC GLUCONATE 50 MG TABLET PO SCH (08:43)
[2020-07-23] MEDS ORDERED: SODIUM CHLORIDE 0.9% 1,000 ML IV ONE (09:17)
[2020-07-23] MEDS ORDERED: ROCURONIUM 500 MG in SODIUM CHLORIDE 0.9% 500 ML IV PRN (09:29)
[2020-07-23] MEDS ORDERED: FUROSEMIDE 20 MG/2 ML VIAL IV ONE (09:33)
[2020-07-23] MEDS ORDERED: VANCOMYCIN INJ 1,250 MG in SODIUM CHLORIDE 0.9% 250 ML IV SCH (10:30)
[2020-07-23] MEDS: FAMOTIDINE 20 MG/2 ML VIAL IV SCH (12:10)
[2020-07-23 14:20] LABS: ABG Base Excess -8.3 MMOL/L (-2.5-2.5); ABG HCO3 17.6 MMOL/L (20-26); ABG Oxygen Saturation 90.9 % (95-100); ABG PCO2 65.8 MM HG (35-48); ABG PO2 78.8 MM HG (80-95); ABG TCO2 20.8 MMOL/L (23-27)
[2020-07-23 14:22] LABS: ABG PH 7.124 (7.35-7.45)
[2020-07-23 15:52] LABS: Pt O2 Delivery Device Ventilator
[2020-07-23 15:53] LABS: ABG Base Excess -7.7 MMOL/L (-2.5-2.5); ABG HCO3 18.1 MMOL/L (20-26); ABG Oxygen Saturation 92.8 % (95-100); ABG PCO2 51.5 MM HG (35-48); ABG PO2 78.1 MM HG (80-95); ABG TCO2 19.4 MMOL/L (23-27)
[2020-07-23 15:54] LABS: ABG PH 7.203 (7.35-7.45)
[2020-07-23] MEDS: NOREPINEPHRINE 8 MG in SODIUM CHLORIDE 0.9% 242 ML IV PRN (17:01)
[2020-07-23] MEDS: TACROLIMUS 0.5 MG CAPSULE PO SCH (18:07)
[2020-07-23] MEDS: SERTRALINE 100 MG TABLET PO SCH (20:21)
[2020-07-23] MEDS: LEVOTHYROXINE 50 MCG TABLET PO SCH (20:21)
[2020-07-23] MEDS: MONTELUKAST 10 MG TABLET PO SCH (20:21)
[2020-07-24] MEDS: fentaNYL INJ 1,250 MCG in SODIUM CHLORIDE 0.9% 225 ML IV PRN ×2 (00:35→13:12)
[2020-07-24] MEDS: methylPREDNISolone SOD SUC 40 MG/1 ML VIAL IV SCH ×4 (00:35→20:22)
[2020-07-24] MEDS: MEROPENEM 500 MG in SODIUM CHLORIDE 0.9% 100 ML IV SCH ×3 (00:35→17:33)
[2020-07-24] MEDS: ALBUTEROL INHALER 18 GM INH SCH ×4 (00:36→18:02)
[2020-07-24 04:24] LABS: ABG Base Excess -8.7 MMOL/L (-2.5-2.5); ABG HCO3 20.2 MMOL/L (20-26); ABG Oxygen Saturation 95.1 % (95-100); ABG PCO2 61.3 MM HG (35-48); ABG PO2 88.6 MM HG (80-95); ABG TCO2 22.1 MMOL/L (23-27); Allen Test Positive; Pt O2 Delivery Device Ventilator
[2020-07-24 04:40] LABS: Basophils # 0.1 10*3/uL (0.0-0.2); Basophils % 0.5 % (0.0-0.8); Hemoglobin 8.5 GM/DL (12.0-16.0); Immature Granulocytes % 17.9 %; Immature Granulocytes Absolute 4.45 #; Lymphocytes # 1.6 10*3/uL (1.4-4.0); Lymphocytes % 6.4 % (21.3-54.2); Mean Corpuscular HGB Conc 30.4 GM/DL (32-36); Mean Platelet Volume 10.5 FL (9.6-12.0); Monocytes % 5.6 % (1.7-12.7); NRBC # 0.11 10*3/uL; Neutrophils % 69.6 % (38.7-73.9); Platelet Count 385 T/CUMM (130-400); Red Blood Count 3.01 MC/CUMM (3.8-5.5); Red Cell Distribution Width 15.7 % (9.3-17.3); White Blood Count 24.9 T/CUMM (4-12)
[2020-07-24 04:53] LABS: Albumin 2.3 G/DL (3.4-5.0); Bilirubin,Total 0.5 MG/DL (0.2-1.0); Calcium 7.9 MG/DL (8.5-10.1); Ferritin 1510.2 ng/ml (8-252); Osmolality,Calculated 286.5 MOS/KG (273-304); Total Protein 6.6 G/DL (6.4-8.3)
[2020-07-24 05:37] LABS: ABG PH 7.136 (7.35-7.45)
[2020-07-24] MEDS: LACTOBACILLUS RHAMNOSUS GG CAPSULE PO SCH (08:36)
[2020-07-24] MEDS: ZINC GLUCONATE 50 MG TABLET PO SCH (08:36)
[2020-07-24] MEDS: ASCORBIC ACID 500 MG TABLET PO SCH (08:36)
[2020-07-24] MEDS: calcitrioL 0.25 MCG CAPSULE PO SCH (08:36)
[2020-07-24] MEDS: TACROLIMUS 0.5 MG CAPSULE PO SCH ×2 (08:36→18:01)
[2020-07-24] MEDS: FOLIC ACID 1 MG TABLET PO SCH ×2 (08:36→20:23)
[2020-07-24] MEDS: ENOXAPARIN 30 MG/0.3 ML SYRINGE SUBCUT SCH ×2 (08:36→20:23)
[2020-07-24] MEDS: NOREPINEPHRINE 8 MG in SODIUM CHLORIDE 0.9% 242 ML IV PRN ×2 (09:11→21:51)
[2020-07-24 09:23] LABS: Band Neutrophils 2 % (0-10); Lymphocytes 7 % (20-55); Metamyelocytes 2 %; Myelocytes 1 %; Segmented Neutrophils 83 % (50-85); Total Cells Counted 100
[2020-07-24 09:24] LABS: Acanthocytes Few; Hypochromasia 1+; Microcytosis 1+; Ovalocytes Few; Tear Drop Cells Slight
[2020-07-24] MEDS: SODIUM CHLORIDE 0.9% 1,000 ML IV SCH ×2 (09:25→22:12)
[2020-07-24 09:26] LABS: Poikilocytosis 1+
[2020-07-24 11:50] LABS: ABG Base Excess -10.5 MMOL/L (-2.5-2.5); ABG HCO3 15.8 MMOL/L (20-26); ABG PCO2 56.7 MM HG (35-48); ABG TCO2 18.1 MMOL/L (23-27)
[2020-07-24 11:53] LABS: ABG PH 7.129 (7.35-7.45)
[2020-07-24] MEDS ORDERED: SODIUM BICARBONATE 50 MEQ/50 ML VIAL IV ONE (11:59)
[2020-07-24] MEDS: FAMOTIDINE 20 MG/2 ML VIAL IV SCH (12:23)
[2020-07-24] MEDS ORDERED: VANCOMYCIN INJ 1,250 MG in SODIUM CHLORIDE 0.9% 250 ML IV PRN (13:00)
[2020-07-24] MEDS: INSULIN REGULAR 100 UNIT/ML SUBCUT SCH (17:54)
[2020-07-24] MEDS: MONTELUKAST 10 MG TABLET PO SCH (20:23)
[2020-07-24] MEDS: LEVOTHYROXINE 50 MCG TABLET PO SCH (20:23)
[2020-07-24] MEDS: SERTRALINE 100 MG TABLET PO SCH (20:23)
[2020-07-25] MEDS: MEROPENEM 500 MG in SODIUM CHLORIDE 0.9% 100 ML IV SCH ×2 (00:34→08:28)
[2020-07-25] MEDS: INSULIN REGULAR 100 UNIT/ML SUBCUT SCH ×3 (00:34→12:33)
[2020-07-25] MEDS: ALBUTEROL INHALER 18 GM INH SCH ×3 (01:07→12:49)
[2020-07-25] MEDS: methylPREDNISolone SOD SUC 40 MG/1 ML VIAL IV SCH ×2 (03:32→12:32)
[2020-07-25 04:38] LABS: ABG Base Excess -14.5 MMOL/L (-2.5-2.5); ABG PCO2 60.4 MM HG (35-48); ABG PO2 63.5 MM HG (80-95); ABG TCO2 16.1 MMOL/L (23-27)
[2020-07-25 04:44] LABS: ABG PH 7.041 (7.35-7.45)
[2020-07-25] MEDS ORDERED: SODIUM BICARBONATE 50 MEQ/50 ML VIAL IV ONE (04:58)
[2020-07-25] MEDS: NOREPINEPHRINE 8 MG in SODIUM CHLORIDE 0.9% 242 ML IV PRN ×3 (05:25→14:11)
[2020-07-25] MEDS: fentaNYL INJ 1,250 MCG in SODIUM CHLORIDE 0.9% 225 ML IV PRN (05:25)
[2020-07-25 07:21] LABS: Basophils # 0.1 10*3/uL (0.0-0.2); Basophils % 0.2 % (0.0-0.8); Hematocrit 31.5 VOL% (35.7-47.0); Hemoglobin 9.3 GM/DL (12.0-16.0); Immature Granulocytes % 17.6 %; Immature Granulocytes Absolute 6.87 #; Lymphocytes # 2.5 10*3/uL (1.4-4.0); Lymphocytes % 6.4 % (21.3-54.2); Mean Corpuscular HGB Conc 29.5 GM/DL (32-36); Mean Corpuscular Volume 94.9 FL (87-102); Mean Platelet Volume 10.6 FL (9.6-12.0); NRBC # 0.51 10*3/uL; Neutrophils % 67.8 % (38.7-73.9); Platelet Count 312 T/CUMM (130-400); Red Blood Count 3.32 MC/CUMM (3.8-5.5)
[2020-07-25 07:27] LABS: White Blood Count 39.1 T/CUMM (4-12)
[2020-07-25 07:55] LABS: Albumin 2.2 G/DL (3.4-5.0); Bilirubin,Total 0.4 MG/DL (0.2-1.0); Calcium 7.3 MG/DL (8.5-10.1); Ferritin 7651.2 ng/ml (8-252); Osmolality,Calculated 294.4 MOS/KG (273-304); Total Protein 6.4 G/DL (6.4-8.3)
[2020-07-25] MEDS: ENOXAPARIN 30 MG/0.3 ML SYRINGE SUBCUT SCH (08:28)
[2020-07-25] MEDS: calcitrioL 0.25 MCG CAPSULE PO SCH (08:28)
[2020-07-25] MEDS: FOLIC ACID 1 MG TABLET PO SCH (08:28)
[2020-07-25] MEDS: ASCORBIC ACID 500 MG TABLET PO SCH (08:28)
[2020-07-25] MEDS: ZINC GLUCONATE 50 MG TABLET PO SCH (08:28)
[2020-07-25] MEDS: LACTOBACILLUS RHAMNOSUS GG CAPSULE PO SCH (08:28)
[2020-07-25] MEDS: TACROLIMUS 0.5 MG CAPSULE PO SCH (08:29)
[2020-07-25 08:31] LABS: Anisocytosis 2+; Band Neutrophils 9 % (0-10); Lymphocytes 8 % (20-55); Metamyelocytes 5 %; Myelocytes 8 %; Nucleated Red Blood Cells 4 (0-5); Platelet Estimate Normal; Promyelocytes 1 %; Segmented Neutrophils 64 % (50-85); Total Cells Counted 100
[2020-07-25 08:32] LABS: Burr Cells Few; Ovalocytes Few; Poikilocytosis 1+; Tear Drop Cells Few
[2020-07-25 08:34] LABS: Basophilic Stippling Slight
[2020-07-25] MEDS ORDERED: VANCOMYCIN INJ 1,250 MG in SODIUM CHLORIDE 0.9% 250 ML IV ONE (09:00)
[2020-07-25] MEDS ORDERED: SODIUM BICARB INJ 150 MEQ in STERILE WATER INJ 1,000 ML IV SCH (09:00)
[2020-07-25 09:27] LABS: ABG Base Excess -13.9 MMOL/L (-2.5-2.5); ABG HCO3 13.5 MMOL/L (20-26); ABG Oxygen Saturation 87.6 % (95-100); ABG PCO2 56.7 MM HG (35-48)
[2020-07-25 11:06] LABS: ABG Base Excess -8.6 MMOL/L (-2.5-2.5); ABG HCO3 17.3 MMOL/L (20-26); ABG Oxygen Saturation 84.7 % (95-100); ABG PCO2 62.3 MM HG (35-48); ABG PO2 62.3 MM HG (80-95); ABG TCO2 20.2 MMOL/L (23-27)
[2020-07-25 11:08] LABS: ABG PH 7.135 (7.35-7.45)
[2020-07-25] MEDS: FAMOTIDINE 20 MG/2 ML VIAL IV SCH (12:32)
[2020-07-25] MEDS ORDERED: NOREPINEPHRINE 4 MG/4 ML VIAL IV ONE (14:21)
[2020-07-25 14:26] LABS: ABG Base Excess -5.9 MMOL/L (-2.5-2.5); ABG HCO3 19.4 MMOL/L (20-26); ABG Oxygen Saturation 86.6 % (95-100); ABG PCO2 60.1 MM HG (35-48); ABG PO2 64.3 MM HG (80-95); ABG TCO2 21.8 MMOL/L (23-27)
[2020-07-25 14:29] LABS: ABG PH 7.189 (7.35-7.45)
[2020-07-25] MEDS ORDERED: FLUCONAZOLE INJ 100 MG in IV BAG 1 EACH IV SCH (15:00)
[2020-07-25] MEDS ORDERED: ROCURONIUM 500 MG in SODIUM CHLORIDE 0.9% 500 ML IV PRN (15:17)
[2020-07-25] MEDS ORDERED: EPINEPHrine 1 MG/ML VIAL ONE (15:53)
[2020-07-25] MEDS ORDERED: SODIUM CHLORIDE 0.9% 1,000 ML IV ONE (16:03)
== END 2020-07-25 16:13 | disposition expired | DRG 208 ==
LOC: EDUNIT# → N.ED 15:25 → SUATTDRO 18:38 → N.EDINP 18:38 → N.2E 22:34 → N.CC 07-21 10:17
PROVIDERS: ADMIT Family Medicine; ATTEND Internal Medicine